=== PATIENT | female | born 1960 | race African-American/Black ===

== ENCOUNTER 2017-08-18 23:05 | Emergency (ER) | payer OTHER ==
[~2017-08-18] VITALS: Ht 170.2 cm; Wt 90.7 kg
[~2017-08-18 23:05] MED LIST: ACETAMINOP500 MG/51 ORAL; ASPIRIN81 M3 PO; ATIVAN1 MG ORAL; ATIVAN2 MG PO; CLONIDINE 0.2M0.2 MG ORAL; LORAZEPAM2 MG ORAL; NORVASC2.5 MG ORAL; PROZAC10 MG PO; PROZAC40 MG ORAL; QUETIAPINE FUMA25 MG ORAL; RESTORIL30 MG ORAL; SEROQUEL300 MG ORAL; TRAMADOL HCL50 MG ORAL; TYLENOL EXTRA500 MG ORAL
[2017-08-18] MEDS ORDERED: ATIVAN1 MG ORAL (23:27)
[2017-08-18] MEDS ORDERED: PROZAC20 MG ORAL (23:27)
[2017-08-19 00:47] LABS: BASOPHILS % (AUTO) 0.8 % (0.0-2.0); LYMPHOCYTES % (AUTO) 23.5 % (20.0-45.0); MEAN CORPUSCULAR HEMOGLOBIN 31.3 PG (27.0-31.0); MEAN CORPUSCULAR HGB CONC 32.7 G/DL (32.0-36.0); MEAN CORPUSCULAR VOLUME 96 FL (80-99); MEAN PLATELET VOLUME 9.4 FL (6.5-10.1); MONOCYTES % (AUTO) 8.9 % (1.0-10.0); NEUTROPHILS % (AUTO) 65.8 % (45.0-75.0); PLATELET COUNT 204 K/UL (150-450); RED BLOOD COUNT 3.74 M/UL (4.20-5.40); WHITE BLOOD COUNT 8.2 K/UL (4.8-10.8)
[2017-08-19 01:01] LABS: ALANINE AMINOTRANSFERASE 19 U/L (12-78); ALBUMIN/GLOBULIN RATIO 1.1 (1.0-2.7); ALCOHOL < 3 mg/dL; ANION GAP 9 mmol/L (5-15); ASPARTATE AMINO TRANSFERASE 14 U/L (15-37); CALCIUM 9.2 MG/DL (8.5-10.1); CARBON DIOXIDE 27 MMOL/L (21-32); CHLORIDE 106 MMOL/L (98-107); CREATININE 0.6 MG/DL (0.55-1.30); GLOMERULAR FILTRATION RATE > 60 mL/min (>60); POTASSIUM 3.3 MMOL/L (3.5-5.1); SODIUM 142 MMOL/L (136-145); TOTAL PROTEIN 7.2 G/DL (6.4-8.2)
[2017-08-19 01:04] LABS: ACETAMINOPHEN < 10 MCG/ML (10-30)
--- NOTE | 2017-08-19 01:35 | Emergency Room Report ---
History of Present Illness General Chief Complaint: Behavioral Complaint Source: Patient Present Illness HPI Is a 56-year-old female with history of depression anxiety. She presents with chief complaint of feeling depressed and suicidal. Onset for several days. Not taking any of her medication. No nausea no vomiting. No other complaint. She was at [facility] last month for the same. Allergies: Coded Allergies: No Known Allergies (Unverified , 06/06/13) Patient History Past Medical History: see triage record, old chart reviewed, psych hx Past Surgical History: other Family History: none Social History: tobacco use Last Menstrual Period: None Now: No : 5 Immunizations: other Reviewed Nursing Documentation: PMH: Agreed, PSxH: Agreed Nursing Documentation-PMH Hx Hypertension: Yes - high cholesterol Review of Systems ENT: Denies: sore throat Cardiovascular: Denies: chest pain, palpitations Gastrointestinal/Abdominal: Denies: nausea, vomiting, diarrhea Musculoskeletal: Denies: back problems Skin: Denies: rash Psychiatric: Reports: suicidal/homicidal ideations Neurological: Denies: [place], seizures All Other Systems: negative except mentioned in HPI Physical Exam Vital Signs Date Time Temp Pulse Resp B/P (MAP) Pulse Ox O2 Delivery O2 Flow Rate FiO2 08/18/17 23:20 98.2 98 18 141/93 98 Room Air vitals normal Sp02 EP Interpretation: reviewed, normal General Appearance: alert/responsive, no apparent distress, non-toxic Head: normocephalic, atraumatic Eyes: PERRL, EOMI ENT: oropharynx normal Neck: supple/symm/no masses Respiratory: effort normal, no rhonchi, no wheezing Cardiovascular: no murmur, gallop, rub Gastrointestinal: non-tender, no mass, non-distended, no rebound/guarding, normal bowel sounds Musculoskeletal: gait & station normal Neurologic: oriented x3, sensory intact, motor strength/tone normal Suicide Risk Assessment: Suicidal Ideation: Yes Had intent to initiate attempt: No Pt's plan for suicide attempt: No Has means to complete attempt: No Skin: no rash, normal palpation Medical Decision Making Diagnostic Impression: Primary Impression: Depression Additional Impression: Suicidal ideation ER Course Present with depression suicidal thoughts. She looks well otherwise. Medically clear for psychiatric evaluation. Lab Results Impression labs normal Last Vital Signs Date Time Temp Pulse Resp B/P (MAP) Pulse Ox O2 Delivery O2 Flow Rate FiO2 08/18/17 23:20 98.2 98 18 141/93 98 Room Air Status: improved Disposition: XFER TO PSYCH HOSP/UNIT Condition: Stable Referrals: NEO CALDERON,REFERRING (PCP) IMANI REINOSO M.D. Aug 19, 2017 01:35
[2017-08-19] MEDS ORDERED: HydrOXYzine 50mg cap ORAL ONE (02:30)
[2017-08-19 02:48] VITALS: BP 139/76
[2017-08-19] MEDS ORDERED: Acetaminophen 500mg (ES) tab ORAL ONE (04:45)
[2017-08-19] MEDS ORDERED: LORazepam Inj 2mg/ml 1ml IM ONE (06:30)
[2017-08-19 06:39] VITALS: BP 157/85
--- NOTE | 2017-08-19 10:16 | Consultation ---
History of Present Illness General Chief Complaint: Behavioral Complaint Present Illness HPI 56-year-old female with history ofschizophrenia and recently discharged [facility] she allegedly is noncompliant with meds. plz see my dictation. Allergies: Coded Allergies: No Known Allergies (Unverified , 06/06/13) Medication History Scheduled Amlodipine Besylate (Norvasc), Unknown Dose ORAL DAILY, (Reported) Clonidine HCl (Clonidine HCl), 0.2 MG ORAL THREE TIMES A DAY, (Reported) Fluoxetine Hcl* (Prozac*), 20 MG ORAL DAILY, (Reported) Lorazepam* (Ativan*), 1 MG ORAL BID Lorazepam* (Ativan*), 1 MG ORAL BEDTIME, (Reported) Lorazepam* (Ativan*), 1 MG ORAL BEDTIME, (Reported) Quetiapine Fumarate (Seroquel), 300 MG ORAL DAILY, (Reported) Quetiapine Fumarate (Seroquel), 50 MG ORAL QHS Quetiapine Fumarate* (Seroquel*), 25 MG ORAL DAILY Temazepam (Restoril*), 30 MG ORAL BEDTIME, (Reported) Tramadol Hcl* (Ultram*), 50 MG ORAL Q6H, (Reported) Scheduled PRN Acetaminophen* (Tylenol Extra Strength*), 500 MG ORAL Q6H PRN for Mild Pain/ Temp > 100.5, (Reported) Miscellaneous Medications Aspirin (Aspirin), 81 MG PO, (Reported) Fluoxetine Hcl* (Prozac*), MG PO, (Reported) Quetiapine Fumarate* (Seroquel*), MG ORAL, (Reported) Patient History Healthcare decision maker Resuscitation status Advanced Directive on File Physical Exam Last 24 Hour Vital Signs Date Time Temp Pulse Resp B/P (MAP) Pulse Ox O2 Delivery O2 Flow Rate FiO2 08/19/17 06:39 97.9 88 20 157/85 99 Room Air 08/19/17 05:42 98.2 08/19/17 02:48 96 18 139/76 100 Room Air 08/18/17 23:20 98.2 98 18 141/93 98 Room Air Laboratory Tests Test 08/19/17 00:23 08/19/17 00:27 Urine Opiates Screen Negative (NEGATIVE) Urine Barbiturates Screen Negative (NEGATIVE) Phencyclidine (PCP) Screen Negative (NEGATIVE) Urine Amphetamines Screen Negative (NEGATIVE) Urine Benzodiazepines Screen Negative (NEGATIVE) Urine Cocaine Screen Negative (NEGATIVE) Urine Marijuana (THC) Screen Negative (NEGATIVE) White Blood Count 8.2 K/UL (4.8-10.8) Red Blood Count 3.74 M/UL (4.20-5.40) L Hemoglobin 11.7 G/DL (12.0-16.0) L Hematocrit 35.8 % (37.0-47.0) L Mean Corpuscular Volume 96 FL (80-99) Mean Corpuscular Hemoglobin 31.3 PG (27.0-31.0) H Mean Corpuscular Hemoglobin Concent 32.7 G/DL (32.0-36.0) Red Cell Distribution Width 14.0 % (11.6-14.8) Platelet Count 204 K/UL (150-450) Mean Platelet Volume 9.4 FL (6.5-10.1) Neutrophils (%) (Auto) 65.8 % (45.0-75.0) Lymphocytes (%) (Auto) 23.5 % (20.0-45.0) Monocytes (%) (Auto) 8.9 % (1.0-10.0) Eosinophils (%) (Auto) 1.0 % (0.0-3.0) Basophils (%) (Auto) 0.8 % (0.0-2.0) Sodium Level 142 MMOL/L (136-145) Potassium Level 3.3 MMOL/L (3.5-5.1) L Chloride Level 106 MMOL/L (98-107) Carbon Dioxide Level 27 MMOL/L (21-32) Anion Gap 9 mmol/L (5-15) Blood Urea Nitrogen 11 mg/dL (7-18) Creatinine 0.6 MG/DL (0.55-1.30) Estimat Glomerular Filtration Rate > 60 mL/min (>60) Glucose Level 101 MG/DL (74-106) Calcium Level 9.2 MG/DL (8.5-10.1) Total Bilirubin 0.2 MG/DL (0.2-1.0) Aspartate Amino Transf (AST/SGOT) 14 U/L (15-37) L Alanine Aminotransferase (ALT/SGPT) 19 U/L (12-78) Alkaline Phosphatase 69 U/L (46-116) Total Protein 7.2 G/DL (6.4-8.2) Albumin 3.7 G/DL (3.4-5.0) Globulin 3.5 g/dL Albumin/Globulin Ratio 1.1 (1.0-2.7) Salicylates Level 1.2 ug/mL (2.8-20) L Acetaminophen Level < 10 MCG/ML (10-30) L Serum Alcohol < 3 mg/dL Height (Feet): 5 Height (Inches): 7.00 Weight (Pounds): 200 Demond Cabello M.D. Aug 19, 2017 10:16
[2017-08-19] MEDS ORDERED: SEROQUEL50 MG ORAL (10:35)
[2017-08-19 10:45] VITALS: BP 148/84
[2017-08-19] MEDS ORDERED: Haloperidol Decanoate 50mg Inj IM ONE (10:45)
[2017-08-19 12:32] VITALS: BP 149/77
--- NOTE | 2017-08-22 10:31 | Consultation ---
DATE OF CONSULTATION: 08/19/2017 HISTORY OF PRESENT ILLNESS: The patient is a 56-year-old female with a history of schizophrenia, depression, and anxiety, who was brought into the emergency room with a chief complaint of wanting to kill herself. The patient has a history of noncompliance with medication. She stated that she has a psychiatrist as he has not been treating physician, Dr. Del Real and Pinky, nurse practitioner who stated that the patient has been recently discharged from [facility]. Over the stay in the [facility], she refused to take her medication. She sometimes takes Seroquel. The patient is having poor insight and judgment into her mental condition and is agitated. However, during her stay in the emergency room, she did not present with any behavior that are indicative of suicidal ideations. The patient was told that she will be given a referral to a psychiatrist. The patient stated her daughter brought her to the emergency room and she has not been taking care of herself and not taking her medication. According to Pinky, nurse practitioner who always takes care of the patient, the patient with a history of noncompliance and never takes her medications. The patient was offered to take medication in the emergency room. She refuses to take medication per nurse, "I don't need that shit, I need a place to go, they are kicking me out, do something, I'm not taking anything and I do not want or need any medication." The patient also had refused vital signs in the ER. The patient does not endorse any psychotic symptoms under auditory hallucination. No history of substance use disorder. Her labs are negative for any drugs or alcohol. Again, the patient was offered a prescription for Seroquel. I spoke to Dr. Magana and she was going to Seroquel at night. Also encouraged the patient to follow up with her psychiatrist. Contacted the social media analyst to follow with this referral. PAST PSYCHIATRIC HISTORY: Several psychiatric hospitalizations. PAST MEDICAL HISTORY: Urinary tract infection. ALLERGIES: No known drug allergies. SUBSTANCE ABUSE HISTORY: No known history of illicit drug use or alcohol. SOCIAL HISTORY: The patient has a home. She is not homeless. She has family support including her daughter. She is on disability. MENTAL STATUS EXAMINATION: The patient is alert and oriented x4. Her mood is irritable. Affect is constricted, congruent with mood. Thought process is concrete. Thought content, no suicidal or homicidal ideations. Even though the patient is saying suicidal, I do not believe the patient had any intention to end her life. Insight and judgment is poor. ASSESSMENT: AXIS I Schizophrenia by history. AXIS II Deferred. AXIS III As above. AXIS IV Low. AXIS V Global assessment of functioning is 50. PLAN: 1. The patient will be given Haldol Decanoate 50 mg, which she refused. 2. She was given a script for Seroquel. 3. Provide the patient with supportive therapy and reality orientation. Demond Cabello M.D. DR: LASHAY JOB#: [id number] CC:
== END 2017-08-19 12:32 | disposition home or self-care (01) ==
LOC: EMR 23:44
DX: F32.9 Major depressive disorder, single episode, unspecified (principal); R45.851 Suicidal ideations; F41.9 Anxiety disorder, unspecified; Z72.0 Tobacco use
CPT/HCPCS: 36415; 80053; 80306; 80329; 85025; 96372; 99284

== ENCOUNTER 2018-01-12 14:49 | Emergency (ER) | payer OTHER ==
[~2018-01-12] VITALS: Ht 170.2 cm; Wt 90.7 kg
[~2018-01-12 14:49] MED LIST changes: +PROZAC20 MG ORAL; +SEROQUEL50 MG ORAL
[2018-01-12 15:01] VITALS: BP 128/73
[2018-01-12] MEDS ORDERED: ATORVASTATIN CA10 MG ORAL (15:05)
--- NOTE | 2018-01-12 15:25 | Emergency Room Report ---
History of Present Illness General Chief Complaint: Fever Source: Patient, Medical Record Present Illness HPI 57 yo female patient presents to ER sent in by primary care provider for fever off and on x5days. Patient also reports foul smelling urine. Reports fever at home to 102 treated with Tylenol; no fever acutely. Reports primary care provider for "general labs". Denies dysuria, hematuria, vaginal discharge. Reports not sexual activity in a "long time". LMP was a few years ago. Denies chest pain, SOB, nausea, vomiting, diarrhea. Denies thoughts of hurting herself or anyone else. Allergies: Coded Allergies: No Known Allergies (Unverified , 06/06/13) Patient History Past Medical History: see triage record Last Menstrual Period: 2014 Reviewed Nursing Documentation: PMH: Agreed, PSxH: Agreed Nursing Documentation-PMH Past Medical History: No History, Except For Hx Hypertension: Yes - high cholesterol Review of Systems All Other Systems: negative except mentioned in HPI Physical Exam Vital Signs Date Time Temp Pulse Resp B/P (MAP) Pulse Ox O2 Delivery O2 Flow Rate FiO2 01/12/18 15:01 98.2 85 18 128/73 98 Room Air 98.2 Sp02 EP Interpretation: reviewed, normal General Appearance: well appearing, no apparent distress, alert, GCS 15, non- toxic Head: normocephalic, atraumatic Eyes: bilateral eye normal inspection, bilateral eye PERRL ENT: hearing grossly normal, normal pharynx, no angioedema, normal voice, TMs + canals normal, uvula midline, moist mucus membranes Neck: full range of motion Respiratory: normal inspection Cardiovascular #1: regular rate, rhythm, no edema Gastrointestinal: non tender, soft, no mass, non-distended, no guarding, no rebound Genitourinary: no CVA tenderness, deferred Musculoskeletal: back normal, digits/nails normal, gait/station normal, normal range of motion, non-tender Neurologic: alert, oriented x3, responsive, motor strength/tone normal, sensory intact Psychiatric: mood/affect normal Skin: no rash Lymphatic: no adenopathy Medical Decision Making PA Attestation Dr. Magana is my supervising Physician whom patient management has been discussed with. Diagnostic Impression: Primary Impression: Urinary tract infection ER Course Pt presents to ED c/o fever and vaginal discharge. DDX considered but are not limited to cystitis, pyelonephritis, STI, vaginitis, bacterial VITAL SIGNS are WNL, patient is afebrile. Ordered UA with reflux, CBC, CMP and Tylenol. Consult with referring provider: Fever since Tuesday per patient, no fever at office. Did pelvic exam with wet mount, pelvic negative , wet mount negative. Did Urine dip, negative urinalysis. Reports patient has a history of anxiety and depression. Instructed patient to report to ER for "general tests" to check for infection. Ordered UA, CBC, CMP and Tylenol. ER COURSE Patient provided with Tylenol CBC unremarkable, no elevation in WBC. Informed patient of elevated blood glucose, states she ate prior to ER arrival, was recently tested and does not have DM. Instructed to followup with PCP. UA results indicate UTI, positive leukocyte esterase and WBC. Will treat with abx. Patient requesting first dose of abx to be provided in ER. Provided patient with one dose of Keflex. Informed patient of results. Instructed patient to followup with primary care provider. Patient expressed concern over STI and HIV. Informed patient to followup with PCP and STI clinic if concern for STI. Patient reports no recent sexual activity , been "a long time since sexual activity"; informed patient testing not performed in ER; patient does not require testing at this time. Instructed patient to followup with mental health professional for any anxiety or depression feelings. Do not believe patient is a harm to herself, OK for discharge. Patient resting comfortably, in no acute distress, nontoxic appearing, talking without difficulty and smiling. DISCHARGE: -Rx provided for Tylenol for fever symptoms. Rx provided for Keflex. Patient is resting comfortably in chair, nontoxic appearing, in no acute distress. Patient states they feel better and is ready to go home. Will provide with patient care instructions and any necessary prescriptions. Patient understands and agrees to treatment plan. Patient encouraged to drink plenty of fluids. Patient to take medication as instructed. Care plan and follow-up instructions provided. Patient questions asked and answered. Reports understanding and agreement to treatment plan. Patient instructed to follow-up with primary care provider in 3 - 5 days. ER precautions given. Patient instructed to return to ER immediately for any new or worsening of symptoms. Including but not limited to fever, worsening pain , intractable vomiting. Labs Test 01/12/18 15:51 01/12/18 16:20 White Blood Count 5.7 K/UL (4.8-10.8) Red Blood Count 4.06 M/UL (4.20-5.40) Hemoglobin 12.7 G/DL (12.0-16.0) Hematocrit 38.7 % (37.0-47.0) Mean Corpuscular Volume 95 FL (80-99) Mean Corpuscular Hemoglobin 31.3 PG (27.0-31.0) Mean Corpuscular Hemoglobin Concent 32.8 G/DL (32.0-36.0) Red Cell Distribution Width 14.0 % (11.6-14.8) Platelet Count 190 K/UL (150-450) Mean Platelet Volume 10.1 FL (6.5-10.1) Neutrophils (%) (Auto) 60.4 % (45.0-75.0) Lymphocytes (%) (Auto) 28.5 % (20.0-45.0) Monocytes (%) (Auto) 8.2 % (1.0-10.0) Eosinophils (%) (Auto) 1.9 % (0.0-3.0) Basophils (%) (Auto) 1.0 % (0.0-2.0) Sodium Level 141 MMOL/L (136-145) Potassium Level 3.8 MMOL/L (3.5-5.1) Chloride Level 105 MMOL/L (98-107) Carbon Dioxide Level 30 MMOL/L (21-32) Anion Gap 6 mmol/L (5-15) Blood Urea Nitrogen 9 mg/dL (7-18) Creatinine 0.7 MG/DL (0.55-1.30) Estimat Glomerular Filtration Rate > 60 mL/min (>60) Glucose Level 113 MG/DL (74-106) Calcium Level 8.9 MG/DL (8.5-10.1) Total Bilirubin 0.4 MG/DL (0.2-1.0) Aspartate Amino Transf (AST/SGOT) 16 U/L (15-37) Alanine Aminotransferase (ALT/SGPT) 19 U/L (12-78) Alkaline Phosphatase 75 U/L (46-116) Total Protein 7.5 G/DL (6.4-8.2) Albumin 3.7 G/DL (3.4-5.0) Globulin 3.8 g/dL Albumin/Globulin Ratio 1.0 (1.0-2.7) Urine Color Pale yellow Urine Appearance Clear Urine pH 5 (4.5-8.0) Urine Specific [place] 1.015 (1.005-1.035) Urine Protein Negative (NEGATIVE) Urine Glucose (UA) Negative (NEGATIVE) Urine Ketones Negative (NEGATIVE) Urine Occult Blood 2+ (NEGATIVE) Urine Nitrite Negative (NEGATIVE) Urine Bilirubin Negative (NEGATIVE) Urine Urobilinogen Normal MG/DL (0.0-1.0) Urine Leukocyte Esterase 1+ (NEGATIVE) Urine RBC 2-4 /HPF (0 - 2) Urine WBC 2-4 /HPF (0 - 2) Urine Squamous Epithelial Cells Moderate /LPF (NONE/OCC) Urine Bacteria Few /HPF (NONE) Last Vital Signs Date Time Temp Pulse Resp B/P (MAP) Pulse Ox O2 Delivery O2 Flow Rate FiO2 01/12/18 15:01 98.2 85 18 128/73 98 Room Air 98.2 Disposition: HOME, SELF-CARE Condition: Stable Scripts Cephalexin* (KEFLEX*) 500 Mg Capsule 500 MG ORAL EVERY 12 HOURS for 7 Days, #13 CAP 0 Refills Prov: Alcides Garcia 01/12/18 Patient Instructions: Urinary Tract Infection, [id number] Additional Instructions: Followup with primary care provider in 3 -5 days. Take medications as directed. Patient questions asked and answered. ER precautions given, patient instructed to return to ER immediately for any new or worsening of symptoms. Alcides Garcia Jan 12, 2018 15:25
[2018-01-12] MEDS: Acetaminophen 500mg (ES) tab ORAL ONE (16:08)
[2018-01-12 16:36] LABS: EOSINOPHILS % (AUTO) 1.9 % (0.0-3.0); HEMATOCRIT 38.7 % (37.0-47.0); HEMOGLOBIN 12.7 G/DL (12.0-16.0); LYMPHOCYTES % (AUTO) 28.5 % (20.0-45.0); MEAN CORPUSCULAR VOLUME 95 FL (80-99); MONOCYTES % (AUTO) 8.2 % (1.0-10.0); NEUTROPHILS % (AUTO) 60.4 % (45.0-75.0); PLATELET COUNT 190 K/UL (150-450); RED BLOOD COUNT 4.06 M/UL (4.20-5.40); WHITE BLOOD COUNT 5.7 K/UL (4.8-10.8)
[2018-01-12 16:40] LABS: ANION GAP 6 mmol/L (5-15); BLOOD UREA NITROGEN 9 mg/dL (7-18); CALCIUM 8.9 MG/DL (8.5-10.1); CARBON DIOXIDE 30 MMOL/L (21-32); CHLORIDE 105 MMOL/L (98-107); CREATININE 0.7 MG/DL (0.55-1.30); POTASSIUM 3.8 MMOL/L (3.5-5.1); SODIUM 141 MMOL/L (136-145)
[2018-01-12 16:45] LABS: ALANINE AMINOTRANSFERASE 19 U/L (12-78); ALBUMIN 3.7 G/DL (3.4-5.0); ALKALINE PHOSPHATASE 75 U/L (46-116); ASPARTATE AMINO TRANSFERASE 16 U/L (15-37); BILIRUBIN,TOTAL 0.4 MG/DL (0.2-1.0)
[2018-01-12 16:56] LABS: APPEARANCE,URINE CLEAR; BILIRUBIN, URINE NEGATIVE (NEGATIVE); COLOR,URINE PALE YELLOW; GLUCOSE, URINE (UA) NEGATIVE (NEGATIVE); KETONES,URINE NEGATIVE (NEGATIVE); LEUKOCYTE ESTERASE ,URINE 1+ (NEGATIVE); NITRITE,URINE NEGATIVE (NEGATIVE); PH,URINE 5 (4.5-8.0); PROTEIN,URINE NEGATIVE (NEGATIVE); UROBILINOGEN,URINE NORMAL MG/DL (0.0-1.0)
[2018-01-12] MEDS ORDERED: CEPHALEXIN500 MG ORAL (17:19)
[2018-01-12] MEDS: Cephalexin 500mg cap ORAL ONE (17:22)
[2018-01-12 17:35] VITALS: BP 153/80
== END 2018-01-12 17:51 | disposition home or self-care (01) ==
LOC: EMR 17:32
DX: N39.0 Urinary tract infection, site not specified (principal)
CPT/HCPCS: 36415; 80053; 81003; 85025; 99283

== ENCOUNTER 2018-01-17 17:10 | Emergency (ER) | payer OTHER ==
[~2018-01-17] VITALS: Ht 170.2 cm; Wt 90.7 kg
[~2018-01-17 17:10] MED LIST changes: +ATORVASTATIN CA10 MG ORAL; +CEPHALEXIN500 MG ORAL
[2018-01-17] MEDS ORDERED: Phenazopyridine 200mg tab ORAL ONE (17:45)
--- NOTE | 2018-01-17 17:46 | Emergency Room Report ---
History of Present Illness General Chief Complaint: Female Urogenital Problems Source: Patient Present Illness HPI 57-year-old female presents to the emergency department complaining of continued dysuria, itching and burning sensation in the vaginal area times one week despite finishing course of antibiotics for recent UTI. Patient denies fevers or chills she reports that pain is radiating up into the midline abdomen. Patient denies nausea, vomiting or recent unprotected intercourse. Patient denies vaginal discharge. She denies swollen tender lymph nodes or joint pain. Denies hematuria, urinary frequency or urgency. Denies CP, Palpitations, LOC, AMS, dizziness, Changes in Vision, Sensation, paresthesias, or a sudden severe headache. Allergies: Coded Allergies: No Known Allergies (Unverified , 06/06/13) Patient History Past Medical History: see triage record, psych hx - paranoid schizophrenia Past Surgical History: none Pertinent Family History: none Last Menstrual Period: na Now: No Reviewed Nursing Documentation: PMH: Agreed, PSxH: Agreed Nursing Documentation-PMH Past Medical History: No History, Except For Hx Hypertension: Yes - high cholesterol Review of Systems All Other Systems: negative except mentioned in HPI Physical Exam Vital Signs Date Time Temp Pulse Resp B/P (MAP) Pulse Ox O2 Delivery O2 Flow Rate FiO2 01/17/18 17:28 98.3 73 18 137/70 98 Room Air 98.2 Sp02 EP Interpretation: reviewed, normal General Appearance: no apparent distress, alert, GCS 15, non-toxic Head: normocephalic, atraumatic Eyes: bilateral eye normal inspection, bilateral eye PERRL ENT: hearing grossly normal, normal voice Neck: full range of motion Respiratory: lungs clear, normal breath sounds, speaking full sentences Cardiovascular #1: regular rate, rhythm Gastrointestinal: normal bowel sounds, non tender, soft, non-distended, no guarding Genitourinary: normal inspection, no CVA tenderness, adnexa normal, os closed, other - Pelvic Exam :thin white d/c in the vaginal vault and external skin sensitivity of the bilateral labia , no CMT. Musculoskeletal: back normal, gait/station normal, normal range of motion, non- tender Neurologic: alert, oriented x3, responsive, motor strength/tone normal, sensory intact, speech normal, grossly normal Psychiatric: judgement/insight normal Skin: normal color, no rash, warm/dry, well hydrated Lymphatic: no adenopathy Medical Decision Making PA Attestation Dr. Fitch is my supervising Physician whom patient management has been discussed with. Diagnostic Impression: Primary Impression: Bacterial vaginosis Additional Impression: Dysuria ER Course 57-year-old female presents to the emergency department complaining of continued dysuria, itching and burning sensation in the vaginal area times one week despite finishing course of antibiotics for recent UTI. Patient denies fevers or chills she reports that pain is radiating up into the midline abdomen. Patient denies nausea, vomiting or recent unprotected intercourse. Patient denies vaginal discharge. She denies swollen tender lymph nodes or joint pain. Denies hematuria, urinary frequency or urgency. Denies CP, Palpitations, LOC, AMS, dizziness, Changes in Vision, Sensation, paresthesias, or a sudden severe headache. Ddx considered but are not limited to UTi , Pyelo, STI, Stone, Cystitis, vaginal laceration, vaginitis. Vital signs: are WNL, pt. is afebrile H& PE are most consistent with: vaginitis- no abdominal ttp or CVA tenderness on physical exam. Pelvic Exam :thin white d/c in the vaginal vault and external skin sensitivity of the bilateral labia , no CMT. ORDERS: - UA labs are attached - Most indicative of contamination: presence of equal amounts of bacteria and squamous cells, no elevation in inflammatory markers, nitrite negative. - WEt Mount : Moderate Clue Cells and bacteria. ED INTERVENTIONS: -Pyridium PO DISCHARGE: At this time pt. is stable for d/c to home. Will provide printed patient care instructions, and any necessary prescriptions. Care plan and follow up instructions have been discussed with the patient prior to discharge. Labs Test 01/17/18 17:35 Urine Color Yellow Urine Appearance Clear Urine pH 6 (4.5-8.0) Urine Specific [place] 1.015 (1.005-1.035) Urine Protein 1+ (NEGATIVE) Urine Glucose (UA) Negative (NEGATIVE) Urine Ketones 1+ (NEGATIVE) Urine Occult Blood 1+ (NEGATIVE) Urine Nitrite Negative (NEGATIVE) Urine Bilirubin Negative (NEGATIVE) Urine Urobilinogen 4 MG/DL (0.0-1.0) Urine Leukocyte Esterase 1+ (NEGATIVE) Urine RBC 2-4 /HPF (0 - 2) Urine WBC 2-4 /HPF (0 - 2) Urine Squamous Epithelial Cells Few /LPF (NONE/OCC) Urine Bacteria Few /HPF (NONE) Last Vital Signs Date Time Temp Pulse Resp B/P (MAP) Pulse Ox O2 Delivery O2 Flow Rate FiO2 01/17/18 17:28 98.3 73 18 137/70 98 Room Air 98.2 Disposition: HOME, SELF-CARE Condition: Stable Scripts Acetaminophen* (TYLENOL EXTRA STRENGTH*) 500 Mg Tablet 500 MG ORAL Q6H Y for Mild Pain/Temp > 100.5, #20 TAB 0 Refills Prov: Fabby Cintron 01/17/18 Phenazopyridine Hcl* (PYRIDIUM*) 200 Mg Tablet 200 MG ORAL THREE TIMES A DAY for 3 Days, #9 TAB 0 Refills Prov: Fabby Cintron 01/17/18 Metronidazole* (FLAGYL*) 500 Mg Tablet 500 MG ORAL BID, #14 TAB 0 Refills Prov: Fabby CintronARobert 01/17/18 Patient Instructions: Bacterial Vaginosis, Dysuria, Medical Screening Exam Additional Instructions: Take medications as directed. Follow up with a Primary Care Provider in 3-5 days, even if your symptoms have resolved. --Please review list of primary care clinics, if you do not already have a primary care provider Return sooner to ED if new symptoms occur, or current symptoms become worse. ! Do not drink alcohol while taking Flagyl/Metronidazole as this will cause a skin reaction. - Please note that this Emergency Department Report was dictated using [employer] resource professional technology software, occasionally this can lead to erroneous entry secondary to interpretation by the dictation equipment. Fabby Cintron Jan 17, 2018 17:46
[2018-01-17 18:44] VITALS: BP 137/70
[2018-01-17 18:44] LABS: APPEARANCE,URINE CLEAR; BILIRUBIN, URINE NEGATIVE (NEGATIVE); GLUCOSE, URINE (UA) NEGATIVE (NEGATIVE); KETONES,URINE 1+ (NEGATIVE); LEUKOCYTE ESTERASE ,URINE 1+ (NEGATIVE); NITRITE,URINE NEGATIVE (NEGATIVE); PH,URINE 6 (4.5-8.0); PROTEIN,URINE 1+ (NEGATIVE); UROBILINOGEN,URINE 4 MG/DL (0.0-1.0)
[2018-01-17 18:51] LABS: COLOR,URINE YELLOW
[2018-01-17] MEDS ORDERED: PHENAZOPYRIDIN200 MG ORAL (19:31)
[2018-01-17] MEDS ORDERED: TYLENOL EXTRA500 MG ORAL (19:31)
[2018-01-17] MEDS ORDERED: METRONIDAZOLE500 MG ORAL (19:31)
[2018-01-17 19:45] VITALS: BP 137/70
== END 2018-01-17 20:07 | disposition home or self-care (01) ==
LOC: EMR 17:57
DX: N76.0 Acute vaginitis (principal); B96.89 Other specified bacterial agents as the cause of diseases classified elsewhere; R30.0 Dysuria; I10 Essential (primary) hypertension
CPT/HCPCS: 81003; 87210; 99284

== ENCOUNTER 2018-01-20 16:11 | Emergency (ER) | payer OTHER ==
[~2018-01-20] VITALS: Ht 170.2 cm; Wt 90.7 kg
[~2018-01-20 16:11] MED LIST changes: +METRONIDAZOLE500 MG ORAL; +PHENAZOPYRIDIN200 MG ORAL
[2018-01-20 16:33] VITALS: BP 137/74
[2018-01-20] MEDS ORDERED: Sodium Chloride 500ML 500 ML IV ONE (16:35)
[2018-01-20 17:35] LABS: APPEARANCE,URINE CLEAR; BILIRUBIN, URINE 2+ (NEGATIVE); COLOR,URINE BROWN; GLUCOSE, URINE (UA) NEGATIVE (NEGATIVE); KETONES,URINE NEGATIVE (NEGATIVE); LEUKOCYTE ESTERASE ,URINE NEGATIVE (NEGATIVE); NITRITE,URINE POSITIVE (NEGATIVE); PH,URINE 5 (4.5-8.0); PROTEIN,URINE 2+ (NEGATIVE); UROBILINOGEN,URINE 8 MG/DL (0.0-1.0)
[2018-01-20 17:41] LABS: BASOPHILS % (AUTO) 1.4 % (0.0-2.0); EOSINOPHILS % (AUTO) 0.9 % (0.0-3.0); HEMATOCRIT 39.4 % (37.0-47.0); LYMPHOCYTES % (AUTO) 25.6 % (20.0-45.0); MEAN CORPUSCULAR VOLUME 94 FL (80-99); MONOCYTES % (AUTO) 8.9 % (1.0-10.0); NEUTROPHILS % (AUTO) 63.2 % (45.0-75.0); PLATELET COUNT 193 K/UL (150-450); RED BLOOD COUNT 4.17 M/UL (4.20-5.40); WHITE BLOOD COUNT 5.6 K/UL (4.8-10.8)
--- NOTE | 2018-01-20 17:55 | Emergency Room Report ---
History of Present Illness General Chief Complaint: General Complaint Source: Patient, Medical Record Present Illness HPI 57-year-old female presents ED complaining of rectal bleeding. Started today. Denies any pain. Notes blood when she is wiping. Denies any abdominal pain. States this is happened in the past and she has had colonoscopies which were negative. Denies any nausea or vomiting. Denies taking stool softeners. Denies taking any blood thinners. No other aggravating or relieving factors. Denies any other associated symptoms Allergies: Coded Allergies: No Known Allergies (Unverified , 06/06/13) Patient History Past Medical History: HTN Past Surgical History: none Pertinent Family History: none Social History: Denies: smoking, alcohol use, drug use Last Menstrual Period: 2 yrs ago Now: No Immunizations: UTD Reviewed Nursing Documentation: PMH: Agreed; PSxH: Agreed Nursing Documentation-PMH Past Medical History: No History, Except For Hx Hypertension: Yes - high cholesterol Review of Systems All Other Systems: negative except mentioned in HPI Physical Exam Vital Signs Date Time Temp Pulse Resp B/P (MAP) Pulse Ox O2 Delivery O2 Flow Rate FiO2 01/20/18 16:18 98.3 92 18 137/74 97 Room Air 98.2 Sp02 EP Interpretation: reviewed, normal General Appearance: no apparent distress, alert, GCS 15, non-toxic Head: normocephalic, atraumatic Eyes: bilateral eye normal inspection, bilateral eye PERRL ENT: hearing grossly normal, normal pharynx, no angioedema, normal voice Neck: full range of motion, supple/symm/no masses Respiratory: chest non-tender, lungs clear, normal breath sounds, speaking full sentences Cardiovascular #1: regular rate, rhythm, no edema Cardiovascular #2: 2+ carotid (R), 2+ carotid (L), 2+ radial (R), 2+ radial (L) , 2+ dorsalis pedis (R), 2+ dorsalis pedis (L) Gastrointestinal: normal bowel sounds, non tender, soft, non-distended, no guarding, no rebound Rectal: deferred Genitourinary: normal inspection, no CVA tenderness Musculoskeletal: back normal, gait/station normal, normal range of motion, non- tender Neurologic: alert, oriented x3, responsive, motor strength/tone normal, sensory intact, speech normal Psychiatric: judgement/insight normal, memory normal, mood/affect normal, no suicidal/homicidal ideation Reflexes: 3+ bicep (R), 3+ bicep (L), 3+ tricep (R), 3+ tricep (L), 3+ knee (R) , 3+ knee (L) Skin: normal color, no rash, warm/dry, well hydrated Lymphatic: no adenopathy Medical Decision Making Diagnostic Impression: Primary Impression: Rectal bleeding ER Course Hospital Course 57-year-old female presents ED complaining of blood in stool Differential diagnosis includes- diverticulitis, constipation, hemorrhoids Clinical course Patient placed on stretcher. After initial history and physical I ordered labs , IV fluids, CT scan Labs - no leukocytosis, electrolytes ok, LFTs normal, UA + bacteria CT scan shows no acute pathology Discussed findings with patient. Given that patient has had rectal bleed on and off for many years now with negative colonoscopy findings I believe patient be safely discharged to home pending outpatient follow-up I feel this is a highly complex case requiring extensive working including EKG/ Rhythm strip, Xray/CT/US, Blood/urine lab work, repeat exams while in ED, and administration of strong opiates/narcotics for pain control, admission to hospital or close patient follow up. Diagnosis - rectal bleeding Stable and discharged to home with Rx Keflex. Followup with PMD. Return to ED if symptoms recur or worsen Labs Test 01/20/18 16:45 White Blood Count 5.6 K/UL (4.8-10.8) Red Blood Count 4.17 M/UL (4.20-5.40) Hemoglobin 13.0 G/DL (12.0-16.0) Hematocrit 39.4 % (37.0-47.0) Mean Corpuscular Volume 94 FL (80-99) Mean Corpuscular Hemoglobin 31.2 PG (27.0-31.0) Mean Corpuscular Hemoglobin Concent 33.1 G/DL (32.0-36.0) Red Cell Distribution Width 14.0 % (11.6-14.8) Platelet Count 193 K/UL (150-450) Mean Platelet Volume 10.5 FL (6.5-10.1) Neutrophils (%) (Auto) 63.2 % (45.0-75.0) Lymphocytes (%) (Auto) 25.6 % (20.0-45.0) Monocytes (%) (Auto) 8.9 % (1.0-10.0) Eosinophils (%) (Auto) 0.9 % (0.0-3.0) Basophils (%) (Auto) 1.4 % (0.0-2.0) Urine Color Brown Urine Appearance Clear Urine pH 5 (4.5-8.0) Urine Specific Mccleary 1.025 (1.005-1.035) Urine Protein 2+ (NEGATIVE) Urine Glucose (UA) Negative (NEGATIVE) Urine Ketones Negative (NEGATIVE) Urine Occult Blood 2+ (NEGATIVE) Urine Nitrite Positive (NEGATIVE) Urine Bilirubin 2+ (NEGATIVE) Urine Ictotest Negative Urine Urobilinogen 8 MG/DL (0.0-1.0) Urine Leukocyte Esterase Negative (NEGATIVE) Urine RBC 2-4 /HPF (0 - 2) Urine WBC 0-2 /HPF (0 - 2) Urine Squamous Epithelial Cells Few /LPF (NONE/OCC) Urine Bacteria Few /HPF (NONE) Sodium Level 143 MMOL/L (136-145) Potassium Level 3.4 MMOL/L (3.5-5.1) Chloride Level 108 MMOL/L (98-107) Carbon Dioxide Level 29 MMOL/L (21-32) Anion Gap 6 mmol/L (5-15) Blood Urea Nitrogen 9 mg/dL (7-18) Creatinine 0.8 MG/DL (0.55-1.30) Estimat Glomerular Filtration Rate > 60 mL/min (>60) Glucose Level 101 MG/DL (74-106) Calcium Level 8.9 MG/DL (8.5-10.1) Total Bilirubin 0.5 MG/DL (0.2-1.0) Aspartate Amino Transf (AST/SGOT) 17 U/L (15-37) Alanine Aminotransferase (ALT/SGPT) 18 U/L (12-78) Alkaline Phosphatase 77 U/L (46-116) Total Protein 7.6 G/DL (6.4-8.2) Albumin 4.0 G/DL (3.4-5.0) Globulin 3.6 g/dL Albumin/Globulin Ratio 1.1 (1.0-2.7) Lipase 75 U/L (73-393) CT/MRI/US Diagnostic Results CT/MRI/US Diagnostic Results : Imaging Test Ordered: CT A/P Impression no acute process Last Vital Signs Date Time Temp Pulse Resp B/P (MAP) Pulse Ox O2 Delivery O2 Flow Rate FiO2 01/20/18 16:33 98.2 92 18 137/74 97 Room Air 98.2 Status: improved Disposition: HOME, SELF-CARE Condition: Stable Scripts Cephalexin* (KEFLEX*) 500 Mg Capsule 500 MG ORAL Q6H, #28 CAP 0 Refills Prov: OBI MAZARIEGOS M.D. 01/20/18 Referrals: [facility],REFERRING (PCP) OBI MAZARIEGOS M.D. Jan 20, 2018 17:55
[2018-01-20 18:02] LABS: ALANINE AMINOTRANSFERASE 18 U/L (12-78); ALBUMIN/GLOBULIN RATIO 1.1 (1.0-2.7); ALKALINE PHOSPHATASE 77 U/L (46-116); ANION GAP 6 mmol/L (5-15); ASPARTATE AMINO TRANSFERASE 17 U/L (15-37); BILIRUBIN,TOTAL 0.5 MG/DL (0.2-1.0); BLOOD UREA NITROGEN 9 mg/dL (7-18); CALCIUM 8.9 MG/DL (8.5-10.1); CARBON DIOXIDE 29 MMOL/L (21-32); CHLORIDE 108 MMOL/L (98-107); CREATININE 0.8 MG/DL (0.55-1.30); POTASSIUM 3.4 MMOL/L (3.5-5.1); SODIUM 143 MMOL/L (136-145)
[2018-01-20 18:30] VITALS: BP 125/79
[2018-01-20 19:31] VITALS: BP 125/79
[2018-01-20] MEDS ORDERED: KEFLEX500 MG ORAL (20:09)
--- NOTE | 2018-01-21 09:51 | Diagnostic Imaging Report ---
Indication: Abdominal pain Technique: CT of the abdomen and pelvis utilizing automated exposure control with intravenous contrast. Venous scanning performed. CT dose: Total DLP 1138 mGycm; CTDI vol 18.6 mGy Comparison: None Findings: Calcified granulomas are seen within the spleen. Cholecystectomy is noted. Liver, adrenal glands and kidneys are grossly unremarkable. Atherosclerotic changes are present. Pancreas is grossly unremarkable. There is limited evaluation of the bowel without oral contrast. The small bowel loops are normal in caliber. There is a tiny fat-containing umbilical hernia. The appendix is normal. There is colonic diverticulosis but no definitive evidence of diverticulitis. Uterus is grossly unremarkable. Bladder is grossly unremarkable. Degenerative changes of the spine are seen. Impression: Limited evaluation of the bowel without oral contrast. Colon not well distended limiting evaluation. Mild colitis is not completely excluded but no pericolonic inflammatory changes identified. Clinical correlation recommended. Cholecystectomy. Calcified granulomas of the spleen. Mild colonic diverticulosis. Other findings as above. The CT scanner at [facility] is accredited by the [employer] and the scans are performed using protocols designed to limit radiation exposure to as low as reasonably achievable to attain images of sufficient resolution adequate for diagnostic evaluation.
== END 2018-01-20 20:20 | disposition home or self-care (01) ==
LOC: EMR 16:49
DX: K62.5 Hemorrhage of anus and rectum (principal); I10 Essential (primary) hypertension; Z90.49 Acquired absence of other specified parts of digestive tract; K57.30 Diverticulosis of large intestine without perforation or abscess without bleeding
CPT/HCPCS: 36415; 74177; 80053; 81003; 83690; 85025; 96361; 96374; 99284; Q9967

== ENCOUNTER 2018-02-11 17:34 | Emergency (ER) | payer OTHER ==
[~2018-02-11] VITALS: Ht 170.2 cm; Wt 90.7 kg
[~2018-02-11 17:34] MED LIST changes: +KEFLEX500 MG ORAL
[2018-02-11 17:51] VITALS: BP 154/79
[2018-02-11 18:50] LABS: BILIRUBIN, URINE NEGATIVE (NEGATIVE); COLOR,URINE YELLOW; GLUCOSE, URINE (UA) NEGATIVE (NEGATIVE); KETONES,URINE NEGATIVE (NEGATIVE); LEUKOCYTE ESTERASE ,URINE 1+ (NEGATIVE); NITRITE,URINE NEGATIVE (NEGATIVE); PH,URINE 6 (4.5-8.0); PROTEIN,URINE NEGATIVE (NEGATIVE); UROBILINOGEN,URINE NORMAL MG/DL (0.0-1.0)
[2018-02-11 18:51] LABS: APPEARANCE,URINE SLIGHTLY CLOUDY
[2018-02-11 18:54] LABS: BASOPHILS % (AUTO) 1.5 % (0.0-2.0); EOSINOPHILS % (AUTO) 1.3 % (0.0-3.0); HEMATOCRIT 34.6 % (37.0-47.0); HEMOGLOBIN 11.6 G/DL (12.0-16.0); LYMPHOCYTES % (AUTO) 38.4 % (20.0-45.0); MEAN CORPUSCULAR VOLUME 94 FL (80-99); MONOCYTES % (AUTO) 9.6 % (1.0-10.0); NEUTROPHILS % (AUTO) 49.3 % (45.0-75.0); PLATELET COUNT 169 K/UL (150-450); RED BLOOD COUNT 3.69 M/UL (4.20-5.40); RED CELL DISTRIBUTION WIDTH 14.2 % (11.6-14.8); WHITE BLOOD COUNT 4.8 K/UL (4.8-10.8)
[2018-02-11] MEDS ORDERED: LORazepam 1mg tab ORAL ONE (19:00)
[2018-02-11 19:01] LABS: ANION GAP 10 mmol/L (5-15); BLOOD UREA NITROGEN 8 mg/dL (7-18); CALCIUM 9.1 MG/DL (8.5-10.1); CARBON DIOXIDE 27 MMOL/L (21-32); CHLORIDE 105 MMOL/L (98-107); CREATININE 0.6 MG/DL (0.55-1.30); POTASSIUM 3.3 MMOL/L (3.5-5.1); SODIUM 142 MMOL/L (136-145)
[2018-02-11 19:05] LABS: ALANINE AMINOTRANSFERASE 22 U/L (12-78); ALBUMIN 3.8 G/DL (3.4-5.0); ALBUMIN/GLOBULIN RATIO 1.2 (1.0-2.7); ALKALINE PHOSPHATASE 61 U/L (46-116); ASPARTATE AMINO TRANSFERASE 17 U/L (15-37); BILIRUBIN,TOTAL 0.5 MG/DL (0.2-1.0)
[2018-02-11 19:30] VITALS: BP 149/77
--- NOTE | 2018-02-11 20:22 | Emergency Room Report ---
History of Present Illness General Chief Complaint: Suicidal Source: Patient (Fabby Cintron) Present Illness HPI 37-year-old female presents to the emergency department complaining of suicidal ideation due to exacerbation of her depression. Patient states that she wants to overdose on medications. Patient states her depression has been exacerbated recently due to consistent pelvic symptoms and failed outpatient treatments. Patient states she continues to have vaginal discharge and 8 out of 10 in severity pelvic discomfort. Patient states she has not followed up up with her [employer]INEER or primary care provider since being evaluated twice recently here in our emergency department. Patient states of Flagyl has not worked for her she denies itching. Patient reports vaginal discharge she denies recent unprotected intercourse and states she does not want to be treated for STDs because she thinks she has a bacterial infection. Patient states that she has sepsis and is going to require a significant workup to finally figure out what type of infection she has. She denies fevers she reports 2 episodes of chills. She reports that she is currently prescribed Ativan and she has been out for 3 days. Patient states that she stopped taking her depression medication" a while go "she states that she stopped cold turkey on her own she was previously taking Prozac. Patient states that she wants psychiatric evaluation and to stay few days here in the ER. Denies abdominal pain or tenderness. Denies dysuria, frequency, urgency, or hematuria. Denies jannette, hypomania, hallucinations, delusions, insomnia, HI, or drug use. Patient reports she has had several previous suicide attempts as well as psychiatric hospitalizations. Patient is currently residing in a transitional housing facility she states that she has 2 daughters however she feels that they do not want much to do with her. (Fabby Cintron P.ARobert) Allergies: Coded Allergies: No Known Allergies (Unverified , 06/06/13) Patient History Past Medical History: see triage record, psych hx Past Surgical History: none Pertinent Family History: none Last Menstrual Period: Post Now: No Reviewed Nursing Documentation: PMH: Agreed; PSxH: Agreed (Fabby Cintron) Nursing Documentation-PMH Hx Hypertension: Yes - high cholesterol (Fabby Cintron.Cary) Review of Systems All Other Systems: negative except mentioned in HPI (Fabby Cintron.Cary) Physical Exam Vital Signs Date Time Temp Pulse Resp B/P (MAP) Pulse Ox O2 Delivery O2 Flow Rate FiO2 02/11/18 17:41 98.9 76 19 161/86 97 Room Air 99.0 Sp02 EP Interpretation: reviewed, normal General Appearance: no apparent distress, alert, GCS 15, non-toxic Head: normocephalic, atraumatic Eyes: bilateral eye normal inspection, bilateral eye PERRL ENT: hearing grossly normal, normal voice Neck: full range of motion Respiratory: chest non-tender, lungs clear, normal breath sounds, no respiratory distress, no wheezing, speaking full sentences Cardiovascular #1: regular rate, rhythm, no edema, normal capillary refill Gastrointestinal: normal bowel sounds, non tender, soft Rectal: deferred Genitourinary: normal inspection, no CVA tenderness Musculoskeletal: back normal, gait/station normal, normal range of motion, non- tender Neurologic: alert, oriented x3, responsive, motor strength/tone normal, sensory intact, speech normal, grossly normal Psychiatric: memory normal, no delusions, other - SI, talkative but with blunted affect. Skin: normal color, no rash, warm/dry, well hydrated, other - no evidence of self inflicted wounds. (Fabby Cintron P.A.) Medical Decision Making PA Attestation Dr. Fitch is my supervising Physician whom patient management has been discussed with. (Fabby Cintron PRobertARobert) Diagnostic Impression: Primary Impression: Behavioral disorder Additional Impressions: Depression UTI (lower urinary tract infection) ER Course 37-year-old female presents to the emergency department complaining of suicidal ideation due to exacerbation of her depression. Patient states that she wants to overdose on medications. Patient states her depression has been exacerbated recently due to consistent pelvic symptoms and failed outpatient treatments. Patient states she continues to have vaginal discharge and 8 out of 10 in severity pelvic discomfort. Patient states she has not followed up up with her YIELD ENGINEER or primary care provider since being evaluated twice recently here in our emergency department. Patient states of Flagyl has not worked for her she denies itching. Patient reports vaginal discharge she denies recent unprotected intercourse and states she does not want to be treated for STDs because she thinks she has a bacterial infection. Patient states that she has sepsis and is going to require a significant workup to finally figure out what type of infection she has. She denies fevers she reports 2 episodes of chills. She reports that she is currently prescribed Ativan and she has been out for 3 days. Patient states that she stopped taking her depression medication" a while go "she states that she stopped cold turkey on her own she was previously taking Prozac. Patient states that she wants psychiatric evaluation and to stay few days here in the ER. Denies abdominal pain or tenderness. Denies dysuria, frequency, urgency, or hematuria. Denies jannette, hypomania, hallucinations, delusions, insomnia, HI, or drug use. Patient reports she has had several previous suicide attempts as well as psychiatric hospitalizations. Patient is currently residing in a transitional housing facility she states that she has 2 daughters however she feels that they do not want much to do with her. Ddx considered but are not limited to OD, SI/HI, psychosis, UTI, intoxication, hypochondriac, Schizophrenia, vaginitis, UTI, STI just to name a few. Vital signs: are WNL, pt. is afebrile H&PE are most consistent with behavioral/mental health issue - Pt. has obvious underlying psychiatric component. review of previous charts depicts medication non-compliance. - Pt. dx'd with BV on previous visit where I was also the provider. -Today: pt. requesting "sepsis testing "and " Severe fungal infection testing" she is declining yeast and wants "severe fungal infection evaluation." ORDERS: -CBC, CMP: unremarkable other than anemia. -UA: negative for infection see results attached. -UDS: Negative -Salicylates and Acetaminophen - no acute intoxication. ED INTERVENTIONS: - 1mg Ativan PO DISPOSITION: Consult with Dr. Cabello ( psychiatry) -she will be available to evaluate the patient in the a.m. she has seen this patient before on previous visits. Signed out to Dr. Magana awaiting psychiatric evaluation. Labs Test 02/11/18 17:55 02/11/18 18:20 Urine Color Yellow Urine Appearance Slightly cloudy Urine pH 6 (4.5-8.0) Urine Specific Vand[place] 1.010 (1.005-1.035) Urine Protein Negative (NEGATIVE) Urine Glucose (UA) Negative (NEGATIVE) Urine Ketones Negative (NEGATIVE) Urine Occult Blood 1+ (NEGATIVE) Urine Nitrite Negative (NEGATIVE) Urine Bilirubin Negative (NEGATIVE) Urine Urobilinogen Normal MG/DL (0.0-1.0) Urine Leukocyte Esterase 1+ (NEGATIVE) Urine RBC 2-4 /HPF (0 - 2) Urine WBC 5-10 /HPF (0 - 2) Urine Squamous Epithelial Cells Moderate /LPF (NONE/OCC) Urine Amorphous Sediment Few /LPF (NONE) Urine Bacteria Few /HPF (NONE) Urine Opiates Screen Negative (NEGATIVE) Urine Barbiturates Screen Negative (NEGATIVE) Phencyclidine (PCP) Screen Negative (NEGATIVE) Urine Amphetamines Screen Negative (NEGATIVE) Urine Benzodiazepines Screen Negative (NEGATIVE) Urine Cocaine Screen Negative (NEGATIVE) Urine Marijuana (THC) Screen Negative (NEGATIVE) White Blood Count 4.8 K/UL (4.8-10.8) Red Blood Count 3.69 M/UL (4.20-5.40) Hemoglobin 11.6 G/DL (12.0-16.0) Hematocrit 34.6 % (37.0-47.0) Mean Corpuscular Volume 94 FL (80-99) Mean Corpuscular Hemoglobin 31.4 PG (27.0-31.0) Mean Corpuscular Hemoglobin Concent 33.5 G/DL (32.0-36.0) Red Cell Distribution Width 14.2 % (11.6-14.8) Platelet Count 169 K/UL (150-450) Mean Platelet Volume 10.0 FL (6.5-10.1) Neutrophils (%) (Auto) 49.3 % (45.0-75.0) Lymphocytes (%) (Auto) 38.4 % (20.0-45.0) Monocytes (%) (Auto) 9.6 % (1.0-10.0) Eosinophils (%) (Auto) 1.3 % (0.0-3.0) Basophils (%) (Auto) 1.5 % (0.0-2.0) Sodium Level 142 MMOL/L (136-145) Potassium Level 3.3 MMOL/L (3.5-5.1) Chloride Level 105 MMOL/L (98-107) Carbon Dioxide Level 27 MMOL/L (21-32) Anion Gap 10 mmol/L (5-15) Blood Urea Nitrogen 8 mg/dL (7-18) Creatinine 0.6 MG/DL (0.55-1.30) Estimat Glomerular Filtration Rate > 60 mL/min (>60) Glucose Level 109 MG/DL (74-106) Calcium Level 9.1 MG/DL (8.5-10.1) Total Bilirubin 0.5 MG/DL (0.2-1.0) Aspartate Amino Transf (AST/SGOT) 17 U/L (15-37) Alanine Aminotransferase (ALT/SGPT) 22 U/L (12-78) Alkaline Phosphatase 61 U/L (46-116) Total Protein 7.1 G/DL (6.4-8.2) Albumin 3.8 G/DL (3.4-5.0) Globulin 3.3 g/dL Albumin/Globulin Ratio 1.2 (1.0-2.7) Salicylates Level 0.6 ug/mL (2.8-20) Acetaminophen Level < 2 MCG/ML (10-30) Serum Alcohol < 3 mg/dL (Fabby Cintron P.A.) ER Course Received signout from GWEN Sequeira 57-year-old female history of depression On Prozac Medically clear on a hold Patient slept comfortably during my shift, in the morning I spoke with patient, patient still states that she has suicidal ideation with a plan to overdose on pills. States that she has attempted past. Upon review of EMR patient has had psychiatric hospitalizations in the past. Pending psychiatric evaluation (Magda Magana M.D.) ER Course Please see above notes. Patient still c/o depression. Has been on Prozac in the past but off for several months. She states she felt she no longer needed it. Labs with pyuria. Has been treated for UTI with several coursed of antibiotics - Keflex, Cipro and Ampicillin. Treated with Macrobid here now. She requests to hold off on resuming Prozac. Await consultation from psychiatrist. Patient was evaluated by psychiatrist. She feels the patient is stable for outpatient treatment. The patient states that she's going to go to [facility] [place]. She initially agreed to take Prozac but then refused a prescription here. She still feels this is all related to "infection". Rx Macrobid. The patient is stable for outpatient observation and treatment. Advised to follow up with her Attendant Campground or urologist. (Merritt Piedra M.D.) Last Vital Signs Date Time Temp Pulse Resp B/P (MAP) Pulse Ox O2 Delivery O2 Flow Rate FiO2 02/11/18 17:51 99.0 78 19 154/79 99 Room Air 99.0 (Fabby Cintron) Last Vital Signs Date Time Temp Pulse Resp B/P (MAP) Pulse Ox O2 Delivery O2 Flow Rate FiO2 02/12/18 14:40 98.4 70 16 119/81 99 Room Air 98.4 Status: improved (Merritt Piedra M.D.) Disposition: HOME, SELF-CARE - plan to go to [facility] Condition: Improved Signed Out To: Dr. Magana Physician Consult: Dr. Cabello (Fabby Cintron) Scripts Ibuprofen* (MOTRIN*) 600 Mg Tablet 600 MG ORAL Q6H PRN for For Pain, #20 TAB Prov: Merritt Piedra M.D. 02/12/18 Nitrofurantoin Monohyd/M-Cryst* (MACROBID 100 MG*) 100 Mg Capsule 100 MG ORAL EVERY 12 HOURS, #14 CAP Prov: Merritt Piedra M.D. 02/12/18 Referrals: NEO CALDERON,REFERRING (PCP) Fabby Cintron Feb 11, 2018 20:22 Magda Magana M.D. Feb 12, 2018 06:05 Merritt Piedra M.D. Feb 12, 2018 07:01
[2018-02-11 21:30] VITALS: BP 133/71
[2018-02-11 23:30] VITALS: BP 135/66
[2018-02-12 01:10] VITALS: BP 126/84
[2018-02-12 03:30] VITALS: BP 121/67
[2018-02-12 05:10] VITALS: BP 126/72
[2018-02-12 07:14] VITALS: BP 113/70
[2018-02-12] MEDS: metroNIDAZOLE 500mg tab ORAL SCH ×2 (10:29→14:00)
[2018-02-12] MEDS ORDERED: NITROFURANTOIN100 M2 ORAL (14:16)
[2018-02-12 14:40] VITALS: BP_SYST 113; BP_SYST 119; BP_DIAS 70; BP_DIAS 81
[2018-02-12] MEDS ORDERED: IBUPROFEN600 MG ORAL (14:44)
--- NOTE | 2018-02-14 01:45 | Consultation ---
DATE OF CONSULTATION: 02/12/2018 HISTORY OF PRESENT ILLNESS: The patient is a 57-year-old female with history of depression and self-reported schizophrenia. She came to the emergency room and stated that she needs help and needs to be admitted to the hospital. She had suicidal ideation with no plan. She did not appear to be depressed nor anxious. The patient was she needs to go to the psychiatric [facility]. Then, she stated she would like to be discharged and go to the . PAST PSYCHIATRIC HISTORY: Several psychiatric hospitalizations. PAST MEDICAL HISTORY: Nonsignificant. SUBSTANCE ABUSE HISTORY: No known history of illicit drug use or alcohol. MENTAL STATUS EXAMINATION: The patient is alert and oriented x4. Mood is irritable. Affect is constricted. Congruent mood. Thought process is concrete. Thought content, no suicidal or homicidal ideation. At the time of the discharge, insight and judgment is fair. ASSESSMENT: [place] I Major depressive disorder. Schizophrenia by history. [place] II Deferred. [place] III As above. [place] IV Low. [place] V Global assessment of functioning is 50. PLAN: The patient will be discharged. The patient is not an imminent danger to self or others and not gravely disabled. The patient refused the prescription for medications. Demond Cabello M.D. DR: Radha JOB#: [id number] CC:
== END 2018-02-12 14:40 | disposition home or self-care (01) ==
LOC: EMR 18:16
DX: F32.9 Major depressive disorder, single episode, unspecified (principal); F91.9 Conduct disorder, unspecified; N39.0 Urinary tract infection, site not specified; R45.851 Suicidal ideations; Z91.5 Personal history of self-harm
CPT/HCPCS: 36415; 80053; 80307; 80329; 81003; 85025; 99284

== ENCOUNTER 2019-02-01 16:56 | Inpatient (IN) | payer OTHER ==
[~2019-02-01] VITALS: Ht 170.2 cm; Wt 110.7 kg
[~2019-02-01 16:56] MED LIST changes: +IBUPROFEN600 MG ORAL; +NITROFURANTOIN100 M2 ORAL
[2019-02-01] MEDS ORDERED: PROZAC10 MG ORAL (17:04)
--- NOTE | 2019-02-01 17:10 | NUR ---
ED Nurse Note: pt walked in c/o intermitten chest pain and palpitations x 5 days, denies radiation, states her left chest side hurts w/ pressure. pt denies sob, -n/v/d. pt AA&ox4, gcs=15, skin warm and dry, resp even and unlabored on RA, -n/v/d, ambulates w/ steady gait, will cont monitor. VSS, NSR on ekg monitor.
[2019-02-01 17:20] VITALS: BP 148/95
[2019-02-01 17:48] LABS: BASOPHILS % (AUTO) 2.3 % (0.0-2.0); EOSINOPHILS % (AUTO) 1.8 % (0.0-3.0); HEMATOCRIT 38.8 % (37.0-47.0); HEMOGLOBIN 12.7 G/DL (12.0-16.0); MEAN CORPUSCULAR VOLUME 94 FL (80-99); NEUTROPHILS % (AUTO) 53.9 % (45.0-75.0); PLATELET COUNT 194 K/UL (150-450); RED BLOOD COUNT 4.12 M/UL (4.20-5.40); RED CELL DISTRIBUTION WIDTH 13.8 % (11.6-14.8); WHITE BLOOD COUNT 6.4 K/UL (4.8-10.8)
--- NOTE | 2019-02-01 17:48 | Emergency Room Report ---
History of Present Illness General Chief Complaint: Palpitations Source: Patient, Medical Record Present Illness HPI 58-year-old female with pmhx of HTN, HLD p/w chest pain for 1-1/2 weeks. Localized to substernal area, no radiation to back or other areas, sharp in nature, gradual in onset, multiple episodes. Occurred on rest and on exertion. Mild SOB. Denies palpitations, diaphoresis, n/v. This is the first occurrence of chest pain. Denies fever, chills, cough, abd pain. Denies trauma. Last stress test was several years ago and it was negative Patient has never had a cardiac catheterization. Denies smoking, no family history of cardiac disease at a young age. Allergies: Coded Allergies: No Known Allergies (Unverified , 06/06/13) Patient History Past Medical History: see triage record Past Surgical History: none Pertinent Family History: none Last Menstrual Period: menopause Reviewed Nursing Documentation: PMH: Agreed; PSxH: Agreed Nursing Documentation-PMH Past Medical History: No History, Except For Hx Hypertension: Yes - high cholesterol Review of Systems All Other Systems: negative except mentioned in HPI Physical Exam Vital Signs Date Time Temp Pulse Resp B/P (MAP) Pulse Ox O2 Delivery O2 Flow Rate FiO2 02/01/19 17:01 98.2 98 18 157/87 98 Room Air Sp02 EP Interpretation: reviewed, normal General Appearance: alert, GCS 15, non-toxic, mild distress Head: normocephalic, atraumatic Eyes: bilateral eye normal inspection, bilateral eye PERRL, bilateral eye EOMI ENT: normal ENT inspection, normal pharynx, normal voice, moist mucus membranes Neck: normal inspection, full range of motion, supple Respiratory: normal inspection, lungs clear, normal breath sounds, no respiratory distress, no retraction, no wheezing, speaking full sentences, chest symmetrical Cardiovascular #1: normal inspection, regular rate, rhythm, no edema, normal capillary refill Cardiovascular #2: 2+ radial (R), 2+ radial (L) Gastrointestinal: normal inspection, non tender, soft, non-distended, no guarding Musculoskeletal: normal inspection, back normal, normal range of motion, non- tender Neurologic: normal inspection, alert, oriented x3, responsive, motor strength/ tone normal, sensory intact, normal gait, speech normal Psychiatric: normal inspection, judgement/insight normal, memory normal Skin: normal inspection, normal color, no rash, warm/dry, well hydrated, normal turgor Medical Decision Making Diagnostic Impression: Primary Impression: Acute coronary syndrome ER Course 58-year-old female p/w CP DDX: ACS vs. CHF vs. pneumonia vs. gastritis/GERD vs. pneumothorax PE on differential however at this time there are other more likely diagnoses. Plan: IV access, obtain labs including troponin, EKG, CXR ASA, pain control with nitro / morphine Anticipate admission ER course: Patient was treated with ASA. Patient has remained on a monitor, HD stable Disposition: Patient requires admission for chest pain. Due to patient's history and comorbidities, patient has increased risk of acute cardiac event. Patient requires admission for further workup, serial troponin, and possible stress test D/W hospitalist Dr Espinosa Please note that this Emergency Department Report was dictated using [employer] judge technology software, occasionally this can lead to erroneous entry secondary to interpretation by the dictation equipment. EKG Diagnostic Results EP Interpretation: Yes Rate: normal Rhythm: NSR ST Segments: No acute changes ASA given to patient: Yes Rhythm Strip EP Interpretation: Yes Rate: 70 Rhythm: NSR, no PVCs, no ectopy Chest X-ray CXR: Ordered: Yes 1 view Indication: Chest pain EP interpretation: Yes Interpretation: No consolidation, no effusion, no PTX, no acute cardiopulmonary disease Impression: No acute disease Electronically signed by Magda Magana MD Laboratory Tests Test 02/01/19 17:05 02/01/19 17:30 02/01/19 19:00 Urine Color Yellow Urine Appearance Clear Urine pH 8 (4.5-8.0) Urine Specific [place] 1.015 (1.005-1.035) Urine Protein 1+ (NEGATIVE) H Urine Glucose (UA) Negative (NEGATIVE) Urine Ketones 1+ (NEGATIVE) H Urine Blood Negative (NEGATIVE) Urine Nitrite Negative (NEGATIVE) Urine Bilirubin Negative (NEGATIVE) Urine Urobilinogen 4 MG/DL (0.0-1.0) H Urine Leukocyte Esterase 1+ (NEGATIVE) H Urine RBC 0 /HPF (0 - 2) Urine WBC 0-2 /HPF (0 - 2) Urine Squamous Epithelial Cells Occasional /LPF Urine Bacteria Occasional /HPF (NONE) White Blood Count 6.4 K/UL (4.8-10.8) Red Blood Count 4.12 M/UL (4.20-5.40) L Hemoglobin 12.7 G/DL (12.0-16.0) Hematocrit 38.8 % (37.0-47.0) Mean Corpuscular Volume 94 FL (80-99) Mean Corpuscular Hemoglobin 30.7 PG (27.0-31.0) Mean Corpuscular Hemoglobin Concent 32.6 G/DL (32.0-36.0) Red Cell Distribution Width 13.8 % (11.6-14.8) Platelet Count 194 K/UL (150-450) Mean Platelet Volume 10.8 FL (6.5-10.1) H Neutrophils (%) (Auto) 53.9 % (45.0-75.0) Lymphocytes (%) (Auto) 33.0 % (20.0-45.0) Monocytes (%) (Auto) 9.0 % (1.0-10.0) Eosinophils (%) (Auto) 1.8 % (0.0-3.0) Basophils (%) (Auto) 2.3 % (0.0-2.0) H Prothrombin Time 10.0 SEC (9.30-11.50) Prothrombin Time INR 0.9 (0.9-1.1) PTT 28 SEC (23-33) Sodium Level 142 MMOL/L (136-145) Potassium Level 3.4 MMOL/L (3.5-5.1) L Chloride Level 106 MMOL/L (98-107) Carbon Dioxide Level 29 MMOL/L (21-32) Anion Gap 7 mmol/L (5-15) Blood Urea Nitrogen 12 mg/dL (7-18) Creatinine 0.7 MG/DL (0.55-1.30) Estimate Glomerular Filtration Rate > 60 mL/min (>60) Glucose Level 100 MG/DL (74-106) Calcium Level 9.2 MG/DL (8.5-10.1) Total Bilirubin 0.3 MG/DL (0.2-1.0) Aspartate Amino Transferase (AST) 23 U/L (15-37) Alanine Aminotransferase (ALT) 37 U/L (12-78) Alkaline Phosphatase 77 U/L (46-116) Troponin I 0.005 ng/mL (0.000-0.056) Pro-B-Type Natriuretic Peptide 55 pg/mL (0-125) Total Protein 7.5 G/DL (6.4-8.2) Albumin 3.8 G/DL (3.4-5.0) Globulin 3.7 g/dL Albumin/Globulin Ratio 1.0 (1.0-2.7) Last Vital Signs Date Time Temp Pulse Resp B/P (MAP) Pulse Ox O2 Delivery O2 Flow Rate FiO2 02/01/19 17:01 98.2 98 18 157/87 98 Room Air Disposition: ADMITTED INPATIENT Condition: Serious Referrals: NEO CALDERON,REFERRING (PCP) Magda Magana M.D. Feb 01, 2019 17:47
[2019-02-01 17:55] LABS: APPEARANCE,URINE CLEAR; BILIRUBIN, URINE NEGATIVE (NEGATIVE); GLUCOSE, URINE (UA) NEGATIVE (NEGATIVE); KETONES,URINE 1+ (NEGATIVE); LEUKOCYTE ESTERASE ,URINE 1+ (NEGATIVE); NITRITE,URINE NEGATIVE (NEGATIVE); PH,URINE 8 (4.5-8.0); PROTEIN,URINE 1+ (NEGATIVE); UROBILINOGEN,URINE 4 MG/DL (0.0-1.0)
[2019-02-01 18:00] LABS: COLOR,URINE YELLOW
[2019-02-01 18:14] LABS: INR 0.9 (0.9-1.1)
--- NOTE | 2019-02-01 18:20 | NUR ---
ED Nurse Note: verified w/ ERMD, pt provided with sandwich and water.
[2019-02-01 19:20] VITALS: BP 138/85
[2019-02-01 19:25] LABS: ANION GAP 7 mmol/L (5-15); BLOOD UREA NITROGEN 12 mg/dL (7-18); CALCIUM 9.2 MG/DL (8.5-10.1); CARBON DIOXIDE 29 MMOL/L (21-32); CHLORIDE 106 MMOL/L (98-107); CREATININE 0.7 MG/DL (0.55-1.30); POTASSIUM 3.4 MMOL/L (3.5-5.1); SODIUM 142 MMOL/L (136-145)
--- NOTE | 2019-02-01 19:30 | NUR ---
ED Nurse Note: pt ambulated to restroom, steady gait noted, pt provided w/ extra blanket for comfort.
[2019-02-01 19:31] LABS: ALANINE AMINOTRANSFERASE 37 U/L (12-78); ALBUMIN 3.8 G/DL (3.4-5.0); ALKALINE PHOSPHATASE 77 U/L (46-116); ASPARTATE AMINO TRANSFERASE 23 U/L (15-37); BILIRUBIN,TOTAL 0.3 MG/DL (0.2-1.0)
[2019-02-01] MEDS ORDERED: Ketorolac 30mg Inj IV PRN (21:00)
[2019-02-01] MEDS ORDERED: Enalaprilat 2.5mg/2ml Inj IV PRN (21:00)
[2019-02-01] MEDS ORDERED: Albuterol/Ipratropium 3ml neb HHN PRN (21:00)
[2019-02-01] MEDS ORDERED: Miralax 17gm pkt ORAL PRN (21:00)
[2019-02-01] MEDS ORDERED: Nitroglycerin Subl 0.4mg tab SL PRN (21:00)
[2019-02-01] MEDS ORDERED: dilTIAZem HCl 25mg/5ml Inj IV PRN (21:00)
[2019-02-01] MEDS ORDERED: Morphine Sulfate 2mg/ml Inj(IV/IM USE ONLY) IVP PRN (21:00)
[2019-02-01 21:30] VITALS: BP 142/79
--- NOTE | 2019-02-01 21:30 | NUR ---
ED Nurse Note: report given to REESE Sanchez from tele, pt transferred, all belongings sent w/ pt, pt refused to go over belongings. VSS, NSR on potline monitor.
--- NOTE | 2019-02-01 21:40 | NUR ---
NURSE NOTES: Received report from TEETEE Villar RN. Pt awake and in no acute distress. Cardiac leads placed on pt and vitals taken. IV site intact and patent. Oriented pt to room and floor. Bed in lowest position and call light within reach. Orders received from .
[2019-02-01] MEDS: Heparin 5000 units/ml inj SUBQ SCH (22:32)
[2019-02-02] VITALS: BP 128/67
[2019-02-02 04:00] VITALS: BP 127/66
[2019-02-02 06:40] LABS: BASOPHILS % (AUTO) 1.7 % (0.0-2.0); EOSINOPHILS % (AUTO) 2.5 % (0.0-3.0); HEMATOCRIT 36.7 % (37.0-47.0); HEMOGLOBIN 11.8 G/DL (12.0-16.0); LYMPHOCYTES % (AUTO) 41.9 % (20.0-45.0); MEAN CORPUSCULAR VOLUME 96 FL (80-99); MONOCYTES % (AUTO) 11.6 % (1.0-10.0); NEUTROPHILS % (AUTO) 42.3 % (45.0-75.0); PLATELET COUNT 161 K/UL (150-450); RED BLOOD COUNT 3.81 M/UL (4.20-5.40); RED CELL DISTRIBUTION WIDTH 14.2 % (11.6-14.8); WHITE BLOOD COUNT 4.4 K/UL (4.8-10.8)
[2019-02-02 07:19] VITALS: BP 110/72
[2019-02-02 07:21] LABS: CHOLESTEROL 136 MG/DL (< 200); HDL CHOLESTEROL 50 MG/DL (40-60); TRIGLYCERIDES 36 MG/DL (30-150)
--- NOTE | 2019-02-02 07:27 | NUR ---
HAND-OFF: Report given to REESE Crane. Endorsed plan of care.
[2019-02-02] MEDS: Heparin 5000 units/ml inj SUBQ SCH (08:12)
--- NOTE | 2019-02-02 08:38 | NUR ---
CASE MANAGEMENT:REVIEW 58 YR OLD FEMALE FROM HOME TO ER CC: PALPITATIONS AND INTERMITTENT CHEST PAIN X1 WEEK N/V/D SI: ACS 98.3 98 18 157/87 98% ON RA K-3.4 TROPONIN(-) IS: ASA PO CHEST XRAY : TO TELEMETRY
--- NOTE | 2019-02-02 08:52 | NUR ---
NURSE NOTES: left msg to Dr Mendez for k level yesterday, 3.4 awaiting response.
--- NOTE | 2019-02-02 08:52 | NUR ---
NURSE NOTES: pt awake alert, no distress. no sob. call light within reach. bed in lowest position, locked.
[2019-02-02] MEDS ORDERED: Aspirin Baby 81mg ORAL SCH ×2 (09:00)
[2019-02-02] MEDS ORDERED: Sodium Chloride for KCL Premix X 4hrs IV SCH (10:00)
--- NOTE | 2019-02-02 12:21 | Consultation ---
History of Present Illness General Date patient seen: Feb 02, 2019 Chief Complaint: Palpitations Present Illness HPI 58-year-old female with Pmhx of HTN, psychosis, presented to ER with CC of chest pain for 1-1/2 weeks at substernal area, no radiation to back or other areas, sharp in nature, gradual in onset, multiple episodes. Occurred on rest and on exertion. Mild SOB. Denies palpitations, diaphoresis, n/v. she had same episode a few years ago, her stress test was negative then. she is admitted for further work up. Allergies: Coded Allergies: No Known Allergies (Unverified , 06/06/13) Medication History Scheduled Amlodipine Besylate (Norvasc), Unknown Dose ORAL DAILY, (Reported) Atorvastatin Calcium* (Lipitor*), 20 MG ORAL BEDTIME, (Reported) Clonidine HCl (Clonidine HCl), MG ORAL THREE TIMES A DAY, (Reported) Fluoxetine Hcl* (Prozac*), 20 MG ORAL DAILY, (Reported) Fluoxetine Hcl* (Prozac*), Unknown Dose ORAL DAILY, (Reported) Lorazepam* (Ativan*), 1 MG ORAL BEDTIME, (Reported) Metronidazole* (Flagyl*), 500 MG ORAL BID Nitrofurantoin Monohyd/M-Cryst* (Macrobid 100 Mg*), 100 MG ORAL EVERY 12 HOURS Quetiapine Fumarate (Seroquel), 300 MG ORAL DAILY, (Reported) Scheduled PRN Ibuprofen* (Motrin*), 600 MG ORAL Q6H PRN for For Pain Miscellaneous Medications Aspirin (Aspirin), 81 MG PO, (Reported) Patient History Healthcare decision maker N Resuscitation status Full Code Advanced Directive on File Past Medical/Surgical History Past Medical/Surgical History: (1) History of hypertension (2) Depression Review of Systems All Other Systems: negative except mentioned in HPI Physical Exam General Appearance: WD/WN Lines, tubes and drains: peripheral HEENT: normocephalic, atraumatic Neck: non-tender, normal alignment Respiratory/Chest: chest wall non-tender, lungs clear Breasts: no masses Cardiovascular/Chest: normal peripheral pulses Abdomen: normal bowel sounds Genitourinary/Rectal: normal genital exam Last 24 Hour Vital Signs Date Time Temp Pulse Resp B/P (MAP) Pulse Ox O2 Delivery O2 Flow Rate FiO2 02/02/19 08:12 78 110/72 02/02/19 07:42 80 02/02/19 07:19 97.0 78 20 110/72 (85) 99 02/02/19 07:18 Room Air 02/02/19 04:00 71 02/02/19 04:00 97.0 71 20 127/66 (86) 99 02/02/19 03:40 Room Air 02/02/19 00:00 99.0 83 20 128/67 (87) 99 02/02/19 00:00 83 02/01/19 23:16 76 18 Room Air 21 02/01/19 21:41 84 02/01/19 21:30 98.1 84 20 142/79 (100) 99 02/01/19 21:18 90 18 Room Air 02/01/19 21:17 98.7 90 18 138/89 98 Room Air 02/01/19 19:20 98.2 96 18 138/85 98 Room Air 02/01/19 17:20 98.2 94 18 148/95 98 Room Air 02/01/19 17:01 98.2 98 18 157/87 98 Room Air Intake and Output 02/01/19 02/02/19 18:59 06:59 Intake Total 60 ml Balance 60 ml Intake Oral 60 ml Laboratory Tests Test 02/01/19 17:05 02/01/19 17:30 02/01/19 19:00 02/02/19 05:10 Urine Color Yellow Urine Appearance Clear Urine pH 8 (4.5-8.0) Urine Specific [place] 1.015 (1.005-1.035) Urine Protein 1+ (NEGATIVE) H Urine Glucose (UA) Negative (NEGATIVE) Urine Ketones 1+ (NEGATIVE) H Urine Blood Negative (NEGATIVE) Urine Nitrite Negative (NEGATIVE) Urine Bilirubin Negative (NEGATIVE) Urine Urobilinogen 4 MG/DL (0.0-1.0) H Urine Leukocyte Esterase 1+ (NEGATIVE) H Urine RBC 0 /HPF (0 - 2) Urine WBC 0-2 /HPF (0 - 2) Urine Squamous Epithelial Cells Occasional /LPF Urine Bacteria Occasional /HPF (NONE) White Blood Count 6.4 K/UL (4.8-10.8) 4.4 K/UL (4.8-10.8) L Red Blood Count 4.12 M/UL (4.20-5.40) L 3.81 M/UL (4.20-5.40) L Hemoglobin 12.7 G/DL (12.0-16.0) 11.8 G/DL (12.0-16.0) L Hematocrit 38.8 % (37.0-47.0) 36.7 % (37.0-47.0) L Mean Corpuscular Volume 94 FL (80-99) 96 FL (80-99) Mean Corpuscular Hemoglobin 30.7 PG (27.0-31.0) 31.0 PG (27.0-31.0) Mean Corpuscular Hemoglobin Concent 32.6 G/DL (32.0-36.0) 32.1 G/DL (32.0-36.0) Red Cell Distribution Width 13.8 % (11.6-14.8) 14.2 % (11.6-14.8) Platelet Count 194 K/UL (150-450) 161 K/UL (150-450) Mean Platelet Volume 10.8 FL (6.5-10.1) H 9.3 FL (6.5-10.1) Neutrophils (%) (Auto) 53.9 % (45.0-75.0) 42.3 % (45.0-75.0) L Lymphocytes (%) (Auto) 33.0 % (20.0-45.0) 41.9 % (20.0-45.0) Monocytes (%) (Auto) 9.0 % (1.0-10.0) 11.6 % (1.0-10.0) H Eosinophils (%) (Auto) 1.8 % (0.0-3.0) 2.5 % (0.0-3.0) Basophils (%) (Auto) 2.3 % (0.0-2.0) H 1.7 % (0.0-2.0) Prothrombin Time 10.0 SEC (9.30-11.50) 10.3 SEC (9.30-11.50) Prothromb Time International Ratio 0.9 (0.9-1.1) 1.0 (0.9-1.1) Activated Partial Thromboplast Time 28 SEC (23-33) 26 SEC (23-33) Sodium Level 142 MMOL/L (136-145) Potassium Level 3.4 MMOL/L (3.5-5.1) L Chloride Level 106 MMOL/L (98-107) Carbon Dioxide Level 29 MMOL/L (21-32) Anion Gap 7 mmol/L (5-15) Blood Urea Nitrogen 12 mg/dL (7-18) Creatinine 0.7 MG/DL (0.55-1.30) Estimat Glomerular Filtration Rate > 60 mL/min (>60) Glucose Level 100 MG/DL (74-106) Calcium Level 9.2 MG/DL (8.5-10.1) Total Bilirubin 0.3 MG/DL (0.2-1.0) Aspartate Amino Transf (AST/SGOT) 23 U/L (15-37) Alanine Aminotransferase (ALT/SGPT) 37 U/L (12-78) Alkaline Phosphatase 77 U/L (46-116) Troponin I 0.005 ng/mL (0.000-0.056) 0.009 ng/mL (0.000-0.056) Pro-B-Type Natriuretic Peptide 55 pg/mL (0-125) Total Protein 7.5 G/DL (6.4-8.2) Albumin 3.8 G/DL (3.4-5.0) Globulin 3.7 g/dL Albumin/Globulin Ratio 1.0 (1.0-2.7) C-Reactive Protein, Quantitative < 0.4 mg/dL (0.00-0.90) Triglycerides Level 36 MG/DL (30-150) Cholesterol Level 136 MG/DL (< 200) LDL Cholesterol 72 mg/dL (<100) HDL Cholesterol 50 MG/DL (40-60) Cholesterol/HDL Ratio 2.7 (3.3-4.4) L Thyroid Stimulating Hormone (TSH) 2.470 uiU/mL (0.358-3.740) Height (Feet): 5 Height (Inches): 7.00 Weight (Pounds): 244 Medications Current Medications Medications (Trade) Dose Ordered Sig/Al Route PRN Reason Start Time Stop Time Status Last Admin Dose Admin Acetaminophen (Tylenol) 650 mg Q4H PRN ORAL FEVER 02/01/19 21:00 03/03/19 20:59 Albuterol/ Ipratropium (Albuterol/ Ipratropium) 3 ml Q4H PRN HHN Shortness of Breath 02/01/19 21:00 02/06/19 20:59 Amlodipine Besylate (Norvasc) 10 mg DAILY ORAL 02/02/19 09:00 03/04/19 08:59 02/02/19 08:12 Aspirin (ASA) 81 mg DAILY ORAL 02/02/19 09:00 03/04/19 08:59 02/02/19 08:12 Aspirin (ASA) 162 mg DAILY ORAL 02/02/19 09:00 03/04/19 08:59 Diltiazem HCl (Cardizem) 10 mg Q1H PRN IV heart rate more than 120, 02/01/19 21:00 03/03/19 20:59 Enalaprilat (Vasotec) 2.5 mg Q6H PRN IV sbp more than 160 02/01/19 21:00 03/03/19 20:59 Heparin Sodium (Porcine) (Heparin 5000 units/ml) 5,000 units EVERY 12 HOURS SUBQ 02/01/19 21:00 03/03/19 20:59 02/01/19 22:32 Ketorolac Tromethamine (Toradol 30mg) 30 mg Q6H PRN IV moderate pain ( 4-6) 02/01/19 21:00 02/06/19 20:59 Morphine Sulfate (Morphine Sulfate) 2 mg Q4H PRN IVP severe Pain (Pain Scale 7-10) 02/01/19 21:00 02/08/19 20:59 Nitroglycerin (Ntg) 0.4 mg Q5M PRN SL Prn Chest Pain 02/01/19 21:00 03/03/19 20:59 Ondansetron HCl (Zofran) 4 mg Q6H PRN IVP Nausea & Vomiting 02/01/19 21:00 03/03/19 20:59 Polyethylene Glycol (Miralax) 17 gm DAILYPRN PRN ORAL Constipation 02/01/19 21:00 03/03/19 20:59 Potassium Chloride 100 ml @ 100 mls/hr Q1HR IVPB 02/02/19 10:00 02/02/19 13:59 02/02/19 11:06 Quetiapine Fumarate (SEROquel) 25 mg Q12HR ORAL 02/01/19 21:00 03/03/19 20:59 Sodium Chloride 400 ml @ 100 mls/hr Q4H IV 02/02/19 10:00 02/02/19 13:59 02/02/19 09:59 Temazepam (Restoril) 15 mg HSPRN PRN ORAL Insomnia 02/01/19 21:00 02/08/19 20:59 Assessment/Plan Problem List: (1) Acute coronary syndrome ICD Codes: I24.9 - Acute ischemic heart disease, unspecified SNOMED: 436841119 (2) Costochondritis ICD Codes: M94.0 - Chondrocostal junction syndrome [[place]ietze] SNOMED: 58908589 (3) History of hypertension ICD Codes: Z86.79 - Personal history of other diseases of the circulatory system SNOMED: 983093400 (4) Depression ICD Codes: F32.9 - Major depressive disorder, single episode, unspecified SNOMED: 28546740 Assessment/Plan serial ekg, troponin, echo cardiology f/u symptomatic treatment analgesics resume psychiatric meds Diogo Mendez MD Feb 02, 2019 12:21
[2019-02-02 12:55] VITALS: BP 120/80
[2019-02-02] MEDS ORDERED: LORazepam Inj 2mg/ml 1ml IV PRN (13:00)
--- NOTE | 2019-02-02 14:39 | NUR ---
*-* INSURANCE *-* CLINICALS AND REVIEWS HAVE BEEN FAXED TO: KENNETH DEY: [facility] PLEASE FAX THE REVIEW/CLINICAL p- [phone] F- [phone]
--- NOTE | 2019-02-02 14:59 | Diagnostic Imaging Report ---
Indication: Chest pain Technique: One view of the chest Comparison: none Findings: Lungs and pleural spaces are clear. Heart size is normal. The aorta is tortuous and calcified Impression: No acute process
[2019-02-02 15:58] VITALS: BP 137/83
[2019-02-02] MEDS ORDERED: QUETIAPINE FUM100 MG ORAL (16:06)
--- NOTE | 2019-02-02 17:13 | NUR ---
NURSE NOTES: received dc home order from dr Mendez cont home meds, iv removed from left hand, 24g, no bleeding. 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
--- NOTE | 2019-02-02 18:02 | NUR ---
NURSE NOTES: pt left in stable condition, with all her belongings. via taxi with taxi voucher
--- NOTE | 2019-02-02 18:22 | History & Physical ---
History and Physical History & Physicial Olaf Espinosa MD Feb 02, 2019 18:22
--- NOTE | 2019-02-02 21:25 | Discharge Summary ---
Discharge Summary Discharge Summary _ DATE OF ADMISSION: 02/01/2019 DATE OF DISCHARGE: 02/02/2019. DISCHARGED BY: Dr. Espinosa REASON FOR ADMISSION: 58 years old female with past medical history of hypertension, hyperlipidemia, morbid obesity, presented with complaint of chest pain lasting for 1-1/2-week. Pain reported being localized to the substernal area .no radiation to back or other areas, sharp in nature, gradual in onset, with multiply episodes. Chest pain acute on the on rest and on exertion. Mild shortness of breath. Patient denied palpitations, diaphoresis, nausea and vomiting. It was a first occurrence of chest pain. Patient denied fevers, chills, cough ,abdominal pain. Patient denied trauma to the chest wall. Last stress test was done several years ago and was negative ,as per patient. Patient never had a cardiac catheterization. Patient denied smoking. No family history of cardiac disease at the young age. Upon evaluation blood pressure was mildly elevated 157/87. Laboratory workup revealed no leukocytosis ,stable hemoglobin,and hematocrit. Potassium 3.4. BUN 12, creatinine 0.7. Glucose 100. Troponin - 0.005. Pro BNP 55. EKG revealed normal sinus rhythm ,no acute ischemic changes. Stable LFT. Chest x-ray revealed no acute cardiopulmonary pathology. In emergency department patient received aspirin. Chest pain was addressed and treated with nitroglycerin and morphine. Patient was admitted for further management to telemetry floor. CONSULTANTS: pulmonary /critical care Dr. Mendez [facility] COURSE: Patient admitted to telemetry floor. Serial troponin were negative. Lipid panel was stable. Echocardiogram revealed preserved ejection fraction of 65% with no evidence of wall motion abnormality. Mild left ventricular hypertrophy. No evidence of pericardial effusion. Right ventricular systolic pressure of 34. Antiplatelet therapy with aspirin was continued. Blood pressure was managed with calcium channel ivone and remained stable. Pain management was addressed. Potassium was replaced. Supplemental oxygen provided need to keep pulse oximetry above 92%. Pulmonary toilet was on standby. Pulse oximetry stable on room air. Psychiatric medications resumed. Chest pain was likely atypical, resolved. Possible costochondritis, as per boom master. Outpatient stress test was recommended Due to rapid and expected improvement in patient's condition, patient was discharged home in one day. FINAL DIAGNOSES: Atypical chest pain rule Possible costochondritis Hypertension Hyperlipoidemia Morbid obesity Depression DISCHARGE MEDICATIONS: See Medication Reconciliation list. DISCHARGE INSTRUCTIONS: Patient was discharged home . Outpatient stress test recommended. Follow up with primary care provider in one week. I have been assigned to dictate discharge summary for this account. I was not involved in the patient's management. Katerina Mcdonough NP Feb 02, 2019 21:25
--- NOTE | 2019-02-03 01:00 | History and Physical Report ---
DATE OF ADMISSION: 02/01/2019 CHIEF COMPLAINT: Chest pain. HISTORY OF PRESENT ILLNESS: This is a 58-year-old morbidly obese female with past medical history significant for hypertension and dyslipidemia, who presented to the hospital complaining of chest pain over one and half week, localized in the substernal area, radiated to the back, sharp in nature. Had multiple episodes in the past. exertion. Shortly after initial evaluation in the emergency, the patient was admitted to the hospital with chest pain and possible acute coronary syndrome. The patient had a last stress test was several years ago, which was negative. Never had cardiac catheterization. MEDICATIONS: Medications at home, please refer to medication reconciliation. PAST MEDICAL HISTORY/PAST SURGICAL HISTORY: morbid obesity, hypertension, and dyslipidemia. ALLERGIES: No known drug allergies. SOCIAL HISTORY: No smoking, alcohol, or drugs. FAMILY HISTORY: Noncontributory. REVIEW OF SYSTEMS: Mostly as above. No fever or chills. No cough. No abdominal pain. No fall or head trauma. PHYSICAL EXAMINATION: VITAL SIGNS: On admission, temperature 98.2, pulse of 98, respirations 18, and blood pressure 157/87. GENERAL: The patient is awake and responsive, in no acute distress. HEAD AND NECK: Pupils are equal and reactive to light. Extraocular movements are intact. Neck was supple. No JVD. LUNGS: Good air entry. No wheezing or rales. HEART: S1 and S2. Regular rate and rhythm. No gallops. ABDOMEN: Soft, nondistended, and nontender. Morbidly obese. EXTREMITIES: No cyanosis, clubbing, or edema. NEUROLOGIC: Cranial nerves II through XII grossly intact. Motor is 5/5 in all extremities. Gait is intact. RECTAL AND GENITOURINARY: Refused and deferred. LABORATORY AND DIAGNOSTIC DATA: On admission, first and second troponin less than 0.05 and 0.09. CRP is less than 0.6. Sodium 142, potassium 3.7, chloride 106, and bicarbonate 29. WBC of 4.4, hemoglobin 11, hematocrit 36, and platelets are 161,000. PT 10, INR 1.0, and PTT of 26. Chest x-ray, no acute process. ASSESSMENT: 1. Atypical chest pain. 2. Morbid obesity. 3. Hypertension. 4. Dyslipidemia. PLAN: We will follow up with Dr. Mendez's recommendation from Pulmonary. If the patient's status improved, consider discharge home to be followed by as outpatient. Outpatient stress test. I advised the patient to follow up with her primary doctor within one week. Make an appointment to see the primary doctor. Code status is Full Code. DVT prophylaxis, heparin subcutaneous. Olaf Espinosa M.D. DR: MELANIE JOB#: [id number] CC:
--- NOTE | 2019-02-05 12:37 | Cardiology Report ---
APPROVED REPORT EXAM: Two-dimensional and M-mode echocardiogram with Doppler and color Doppler. INDICATION Left ventricular function M-Mode DIMENSIONS IVSd1.5 (0.7-1.1cm)Left Atrium (MM)3.3 (1.6-4.0cm) LVDd4.3 (3.5-5.6cm)Aortic Root2.8 (2.0-3.7cm) PWd1.3 (0.7-1.1cm)Aortic Cusp Exc.2.5 (1.5-2.0cm) LVDs3.1 (2.5-4.0cm) PWs1.2 cm Other Information Technically limited study due to apical windows. Normal left ventricular chamber size, systolic function and wall motion. Left ventricular ejection fraction estimated to be 65 %. Mild left ventricular hypertrophy. No evidence of pericardial effusion. Moderate left atrial enlargement. Right cardiac chamber sizes are within normal limits. Focal aortic valve sclerosis with adequate cusp excursion. Thickened mitral valve leaflets with normal excursion. Mitral annulus and aortic root calcification. Pulmonic valve not well visualized. Normal tricuspid valve structure. IVC dilated at 2.9 cm with slight physiologic collapse suggestive of increased RA pressure. A color flow and spectral Doppler study was performed and revealed: No aortic regurgitation. Trace mitral regurgitation. Mitral diastolic velocities suggest normal left ventricular function. Mild tricuspid regurgitation. Tricuspid systolic velocities suggests peak right ventricular systolic pressure of 34 mmHg
--- NOTE | 2019-02-05 19:35 | Cardiology Report ---
APPROVED REPORT EKG Measurement Heart [id number] Normal sinus rhythm Normal ECG
== END 2019-02-02 18:00 | disposition home or self-care (01) | DRG 203 ==
LOC: EMR 17:20 → EDBEDREQ 20:37 → 2E 20:53
DX: M94.0 Chondrocostal junction syndrome [Tietze] (principal); E66.01 Morbid (severe) obesity due to excess calories; I10 Essential (primary) hypertension; E78.5 Hyperlipidemia, unspecified; F32.9 Major depressive disorder, single episode, unspecified; F29 Unspecified psychosis not due to a substance or known physiological condition
CPT/HCPCS: 36415; 71045; 80053; 80061; 81003; 82962; 83880; 84443; 84484; 85025; 85610; 85730; 86140; 93005; 93306; 94664; 99285; J8499

== ENCOUNTER 2020-04-11 01:19 | Emergency (ER) | payer OTHER ==
[~2020-04-11] VITALS: Ht 170.2 cm; Wt 90.7 kg
[~2020-04-11 01:19] MED LIST changes: +PROZAC10 MG ORAL; +QUETIAPINE FUM100 MG ORAL
--- NOTE | 2020-04-11 01:45 | NUR ---
ED Nurse Note: Recieved pt from home, here with c/o severe depression and needs med refill, pt has hx of depression and states has been out of her prozac for about 1 month and needs it again, states is depressed from recent community protesting and pandemic events, denies suicidal or homicidal ideations or any hallucinations, pt is calm and cooperative, denies any physical complaints, no CP, SOB, Pain or any distress.
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
[2020-04-11 02:12] LABS: APPEARANCE,URINE CLEAR; BILIRUBIN, URINE NEGATIVE (NEGATIVE); GLUCOSE, URINE (UA) NEGATIVE (NEGATIVE); KETONES,URINE NEGATIVE (NEGATIVE); LEUKOCYTE ESTERASE ,URINE 2+ (NEGATIVE); NITRITE,URINE NEGATIVE (NEGATIVE); PH,URINE 5 (4.5-8.0); PROTEIN,URINE NEGATIVE (NEGATIVE); UROBILINOGEN,URINE NORMAL MG/DL (0.0-1.0)
[2020-04-11 02:18] LABS: BASOPHILS % (AUTO) 1.6 % (0.0-2.0); HEMATOCRIT 37.8 % (37.0-47.0); HEMOGLOBIN 12.2 G/DL (12.0-16.0); LYMPHOCYTES % (AUTO) 33.8 % (20.0-45.0); MEAN CORPUSCULAR VOLUME 96 FL (80-99); MONOCYTES % (AUTO) 10.9 % (1.0-10.0); NEUTROPHILS % (AUTO) 51.8 % (45.0-75.0); PLATELET COUNT 138 K/UL (150-450); RED BLOOD COUNT 3.96 M/UL (4.20-5.40); RED CELL DISTRIBUTION WIDTH 13.5 % (11.6-14.8)
[2020-04-11 02:20] LABS: ANION GAP 6 mmol/L (5-15); BLOOD UREA NITROGEN 20 mg/dL (7-18); CALCIUM 8.8 MG/DL (8.5-10.1); CARBON DIOXIDE 29 MMOL/L (21-32); CHLORIDE 107 MMOL/L (98-107); POTASSIUM 3.5 MMOL/L (3.5-5.1); SODIUM 142 MMOL/L (136-145)
[2020-04-11 02:22] LABS: COLOR,URINE YELLOW
[2020-04-11] MEDS ORDERED: PROZAC20 MG ORAL (02:30)
[2020-04-11] MEDS ORDERED: NITROFURANTOIN100 M2 ORAL (02:30)
[2020-04-11 02:40] VITALS: BP 136/81
--- NOTE | 2020-04-11 02:40 | NUR ---
ER DISCHARGE NOTE: Patient is cleared to be discharged per ERMD, pt is aox4, on room air, with stable vital signs. pt was given dc and prescription instructions, pt was able to verbalize understanding, pt id band removed without complications. pt is able to ambulate with steady gait. pt took all belongings.
[2020-04-11] MEDS ORDERED: FLUoxetine 10mg cap ORAL ONE (02:45)
== END 2020-04-11 02:40 | disposition home or self-care (01) ==
LOC: EMR 01:45
DX: F32.9 Major depressive disorder, single episode, unspecified (principal); N39.0 Urinary tract infection, site not specified; F41.9 Anxiety disorder, unspecified
CPT/HCPCS: 36415; 80048; 81001; 85025; 99284